=== PATIENT | male | born 1950 | race Caucasian/White ===

== ENCOUNTER 2020-08-06 09:08 | Emergency (ER) | payer MEDICARE, BC, SELFPAY ==
[2020-08-06] VITALS (19 sets, daily range): BP systolic 118–156; BP diastolic 71–104; PULSE 48–69; RESP 10–27; TEMP 36.8; O2SAT 96–100
--- NOTE | 2020-08-06 09:00 | RT.EKG_ITS ---
APPROVED REPORT Exam: Resting ECG Reason for Exam: syncope Patient Location: E HR:74 bpm ECG Measurements Heart Rate 74 AXIS IN 144 P 77 QRSd 79 QRS 77 QT 361 T 68 QTc 402 Conclusion Sinus rhythm...normal P axis, V-rate 60- 99 no WPW, no HOCM, QTc 402, no brugada, no acute ischemic changes. non-diagnostic EKG. I have reviewed and interpreted ECG and agree with software generated interpretation.
--- NOTE | 2020-08-06 09:17 | W.ED.GENAD ---
Discharge Plan Disposition Patient Disposition: HOME Condition: Stable Discharge Details Clinical Impression: Syncope Primary Care Provider: Vivi Santiago ED Provider: Chasidy Mora Home Meds and New Rx's Prescriptions: Continued ibuprofen 200 MG capsule 200 - 600 mg PO HS RF: 0 levothyroxine [Synthroid] 125 MCG tablet 1 tab PO DAILY RF: 0 Discharge Instructions Instructions: Syncope (ED) Additional Instructions: Follow up with primary care provider in 3-5 days. Return to ED sooner if any worsening or concerns. Increase oral fluids. Change positions slowly. Please return to the ED for any recurrent syncopal episodes, chest pain, headache or any concerns. Referrals: Vivi Santiago MD [Primary Care Provider] - Discharge Data Discharge Date/Time-TO BE ENTERED AT DEPARTURE: 08/06/20 10:37 Medical Decision Making 70-year-old male presents to the ER with chief complaint of syncopal episode just prior to arrival. Patient was upstairs with his who is currently a patient when they were showing him how to do a dressing change when he fainted. Patient denies any recollection of the event. He did eat breakfast this morning. He denies any headache he is alert and oriented x4 upon arrival no chest pain no shortness of breath denies any pain. He does have a past medical history of anxiety, hypothyroidism, right shoulder surgery. Initial BGL POC 127. EKG obtained, labs ordered including CBC, CMP, magnesium and serial troponins. At this time I do not believe CT head is indicated patient did not fall to the ground or hit head he is alert and oriented x3 denies any headache or blurry vision. Patient did eat breakfast this morning he denies any headache no chest pain. EKG was reviewed by Dr. Lois Galarza MD ER attending, please see her official read. Labs are largely WNL, however BUN/creatinine are elevated BUN is 41 creatinine 2.0 GFR 33. Discussed renal function with verbalized understanding. Orthostatic vital signs are also within normal limits. At this time plan will be to discharge patient. Discussed home care and strict return instructions, verbalized understanding. Differential diagnosis includes but not limited to vasovagal, anxiety, CAD, hypotension. HPI General Mode of arrival: wheelchair. Date/Time Provider Initiated Documentation: 08/06/20 09:09. Limitations to Documentation: no limitations. Information obtained by: patient. HPI Narrative: 70-year-old male presents to the ER with chief complaint of syncopal episode just prior to arrival. Patient was upstairs with his who is currently a patient when they were showing him how to do a dressing change when he fainted. Patient denies any recollection of the event. He did eat breakfast this morning. He denies any headache he is alert and oriented x4 upon arrival no chest pain no shortness of breath denies any pain. He does have a past medical history of anxiety, hypothyroidism, right shoulder surgery. Initial BGL POC 127. Related Data Home Medications Medication Instructions Recorded Confirmed levothyroxine [Synthroid] 1 tab PO DAILY 07/07/12 08/06/20 ibuprofen 200 - 600 mg PO HS 11/18/13 08/06/20 Allergies Allergy/AdvReac Type Severity Reaction Status Date / Time codeine [Codeine] AdvReac Severe Psychosis Unverified 08/06/20 09:21 acetaminophen [From Tylenol] AdvReac Intermediate Unverified 08/06/20 09:21 aspirin AdvReac Intermediate Unverified 08/06/20 09:21 oxycodone AdvReac Intermediate Nausea Unverified 08/06/20 09:21 Review of Systems Narrative: Constitutional: Negative for weight loss, alert and oriented, well groomed, normal body habitus, appears comfortable. HEENT: Denies trauma, headaches, blurry vision, nasal discharge, sore throat, trouble swallowing. Chest: Denies chest pain, palpitations, irregular rhythm, hypertension. Respiratory: Denies Shortness of breath, cough, hemoptysis. GI: Denies abdominal pain, nausea, vomiting, diarrhea, constipation. : Denies dysuria, hematuria, flank pain, rectal bleeding. Neuro: Denies blurry vision, weakness, headache or facial numbness. Positive syncopal episode prior to arrival. Hematologic: Denies easy bruising, intolerance to heat or cold, hair loss. [facility] Social History Smoking/Tobacco Use Status: Current every day Smoking risk assessment performed?: Yes Alcohol Intake: never Drug use: Never Do you feel safe at home: Yes Do you feel safe in your relationship?: Yes Exam Narrative Exam Narrative: Constitutional: Alert and oriented x3. Appears stated age. Normal body habitus. Head: Normocephalic, no trauma. Eyes: Pupils PERRLA, Red reflex noted, EOM's intact. Eyelids symmetrical without lesions, discharge, or swelling. ENT: Bilateral TM's WNL, External ear normal to inspection, no mastoid TTP, swelling, or erythema, Nasal turbinates WNL, no nasal discharge. Normal dentition, Posterior pharynx WNL, no exudate. Chest: RRR, Normal S1, S2, distal pulses intact. Resp: Lungs clear to auscultation bilaterally, no wheezes, rales, or rhonchi. Musculoskeletal: Normal gait, 5/5 strength to all four extremities. Skin: No suspicious rashes or lesions. Capillary refill less than 2 sec. Neurologic: Cranial nerves II-XII intact. Alert and oriented x 3. DTR's intact. Hematologic/Lymphatic: No ecchymosis, no lymphadenopathy.
[2020-08-06 09:33] LABS: Abs Immature Grans 0.02 10^3/uL (0.0-0.06); Absolute Basophil Count 0.06 10^3/uL (0.0-0.2); Absolute Eosinophil Count 0.34 10^3/uL (0.0-0.7); Absolute Monocyte Count 0.65 10^3/uL (0.1-0.8); Absolute Neutrophil Count 4.34 10^3/uL (1.2-6.7); Basophils % 0.9; HCT 47.9 % (40.0-50.0); HGB 15.6 g/dL (13.5-17.5); Immature Grans % 0.3; Lymphocytes % 20.6; MCH 29.8 pg (27.0-33.0); MCHC 32.6 % (32.0-36.0); MCV 91.4 fL (80-95); MPV 9.4 fL (8.0-11.0); Monocytes % 9.5; Neutrophils % 63.7; Nucleated RBC 0 %; Platelet Count 204 10^3/uL (130-400); RBC 5.24 10^6/uL (4.36-5.78); RDW 14.5 % (11.8-14.1); RDW-SD 48.5 fL; WBC 6.81 10^3/uL (4.4-10.8)
[2020-08-06 09:46] LABS: ALT 13 U/L (16-63); AST 15 U/L (15-37); Albumin 3.4 g/dL (3.4-5.0); Alkaline Phosphatase 80 U/L (46-116); Anion Gap 10.1 mmol/L (3-11); BUN 41 mg/dL (7-18); Bilirubin, Total 0.4 mg/dL (0.2-1.0); CO2 24.9 mmol/L (21.0-32.0); Calcium 9.1 mg/dL (8.5-10.1); Chloride 104 mmol/L (98-107); Estimated GFR 33.01 (mL/min/1.73m2); Glucose 127 mg/dL (74-106); Magnesium 1.9 mg/dL (1.8-2.4); Potassium 4.5 mmol/L (3.5-5.1); Sodium 139 mmol/L (136-145); Total Protein 9.1 g/dL (6.4-8.2)
[2020-08-06 09:48] LABS: Troponin I < 0.05 ng/mL (<0.06)
== END 2020-08-06 10:37 | disposition home or self-care (01) ==
PROVIDERS: Emergency Provider Registered Nurse Emergency
DX: R55 Syncope and collapse (principal)
CPT/HCPCS: 36416; 80053; 82962; 93005; 99283; 83735; 84484; 85025; 93010

== ENCOUNTER 2021-04-15 14:38 | Outpatient (REF) | payer MEDICARE, BC, SELFPAY ==
[2021-04-15 21:06] LABS: Anion Gap 7.2 mmol/L (3-11); BUN 28 mg/dL (7-18); CO2 25.8 mmol/L (21.0-32.0); CREATININE 1.7 mg/dL (0.70-1.30); Calcium 8.4 mg/dL (8.5-10.1); Calculated LDL 72 mg/dL (<100); Chloride 107 mmol/L (98-107); Cholesterol 132 mg/dL (<200); Estimated GFR 39.82 (mL/min/1.73m2); Glucose 131 mg/dL (74-106); HDL Cholesterol 33 mg/dL (40-60); Potassium 4.1 mmol/L (3.5-5.1); Sodium 140 mmol/L (136-145); TSH (W/Ref FT4) 2.07 uIU/mL (0.36-3.74); Triglyceride 137 mg/dL (<150)
== END 2021-04-15 14:39 | disposition home or self-care (01) ==
LOC: NCHCN 14:38
PROVIDERS: Visit Provider Nurse Practitioner Family
DX: E03.9 Hypothyroidism, unspecified (principal); F43.20 Adjustment disorder, unspecified; M79.89 Other specified soft tissue disorders; Z13.220 Encounter for screening for lipoid disorders
CPT/HCPCS: 80048; 80061; 84443

== ENCOUNTER 2021-06-20 10:58 | Emergency (ER) | payer MEDICARE, BC, SELFPAY ==
[2021-06-20] VITALS (27 sets, daily range): BP systolic 128–167; BP diastolic 61–90; PULSE 49–74; RESP 12–21; TEMP 36; O2SAT 92–99
--- NOTE | 2021-06-20 11:15 | RT.EKG_ITS ---
APPROVED REPORT Exam: Resting ECG Reason for Exam: shortness of breath Patient Location: E HR:52 bpm ECG Measurements Heart Rate 52 AXIS CO 152 P 77 QRSd 81 QRS 65 QT 399 T 60 QTc 372 Conclusion Sinus bradycardia...rate< 60
--- NOTE | 2021-06-20 11:32 | W.ED.GENAD ---
Discharge Plan Disposition Patient Disposition: HOME Condition: Stable Discharge Details Clinical Impression: Nocturnal dyspnea Primary Care Provider: Vivi Santiago ED Provider: Lilliam Kathleen Home Meds and New Rx's Prescriptions: Continued ibuprofen 200 MG capsule 200 - 600 mg PO HS 0RF Label Comments: PT STATES HE TAKES 600MG QHS.HE levothyroxine [Synthroid] 125 MCG tablet 1 tab PO DAILY 0RF Discharge Instructions Instructions: Dyspnea (ED) Additional Instructions: Please follow-up with primary care physician in 1 to 2 days for reassessment You will likely need a sleep study, call your doctor to organize this You also have some nodules in your lungs that will need repeat CT scan in approximately 12 months, please talk to your doctor about this You may want to sleep in a recliner for comfort Please return earlier should you have new or worsening complaints Referrals: Vivi Santiago MD [Primary Care Provider] - Discharge Data Discharge Date/Time-TO BE ENTERED AT DEPARTURE: 06/20/21 15:09 Medical Decision Making Patient with CT scan with nodules, no additional findings will follow up with PCP for repeat CT in 12 months The patient has paroxysmal nocturnal dyspnea, no obvious evidence of CHF I think patient will need sleep study Troponin negative with symptoms for over a month and no exertional component or chest pain No hypoxia, oxygenation 98% on room air Patient will be discharged home in stable condition with stable vitals Return precautions discussed with patient understanding encouraged to call pcp for close outpatient follow-up this week Medical Records Medical records reviewed: Yes I reviewed the patient's medical records. Lab Data Lab results reviewed: Yes I reviewed the patient's lab results. HPI General Date/Time Provider Initiated Documentation: 06/20/21 11:20. Limitations to Documentation: no limitations. HPI Narrative: This 71-year-old gentleman with history of hypothyroidism, anxiety, and snoring presents with report of shortness of breath whenever he lays flat. He states that this is been occurring for the past month. He denies any associated chest discomfort. He denies exertional dyspnea. He denies any fever or chills. He denies any cough or hemoptysis. He denies any calf pain or swelling. He denies any new stressors of lungs. He denies any prior history of [place]. He denies any associated diaphoresis or nausea. Denies history of pulmonary embolism. Specifically symptoms occur when he lays flat. Last evening he was laying flat and he awoke with inability to catch his breath. Related Data Home Medications Medication Instructions Recorded Confirmed levothyroxine 125 mcg tablet 1 tab PO DAILY 07/07/12 06/20/21 (Synthroid) ibuprofen 200 mg capsule 200 - 600 mg PO HS 11/18/13 06/20/21 Allergies Allergy/AdvReac Type Severity Reaction Status Date / Time codeine [Codeine] AdvReac Severe Psychosis Unverified 06/20/21 11:12 acetaminophen [From Tylenol] AdvReac Intermediate Unverified 06/20/21 11:12 aspirin AdvReac Intermediate Unverified 06/20/21 11:12 oxycodone AdvReac Intermediate Nausea Unverified 06/20/21 11:12 General Stated Complaint: GenMedical DARCY: 3 Review of Systems All systems reviewed & are unremarkable except as noted in HPI and below PFSH All Active Problems (Updated 06/20/21 @ 14:53 by ETHAN Garcia) Osteoarthritis of right shoulder (Acute) Status post right shoulder hemiarthroplasty (Acute) Anxiety (Chronic) Hypothyroidism (Chronic) H/O surgical procedure (Chronic) A. VASECTOMY B. DENTAL EXTRACTIONS C. RIGHT SHOULDER HEMIARTHROPLASTY WITH HUMERAL CAP PROSTHESIS 12/13/2013 Panic attack (Chronic) Snoring (Chronic) Syncope (Chronic) Nocturnal dyspnea (Acute) Social History Smoking/Tobacco Use Status: Current every day Tobacco Type: cigarettes Smoking risk assessment performed?: Yes Alcohol Intake: never Drug use: Never Do you feel safe at home: Yes Do you feel safe in your relationship?: Yes Exam Const General: cooperative, comfortable and no acute distress [facility] Head: normal to inspection Eyes Sclera: sclerae normal Neck Thyroid: thyroid normal Chest Chest: normal inspection of the chest Resp Effort & Inspection: normal respiratory effort Auscultation: clear to auscultation bilaterally Cardio Jugular venous pressure: no JVD Rate: regular rate Rhythm: regular rhythm Heart Sounds: no murmurs Skin General skin exam: no rashes or lesions noted Neuro General: patient alert and patient oriented x3 Extrem General: normal to inspection and no pedal edema Course Vital Signs Vital signs: Vital Signs Temperature 36 C L 06/20/21 11:09 Pulse 65 06/20/21 11:09 Respiratory Rate 16 06/20/21 11:09 Blood Pressure 139/83 06/20/21 11:09 Pulse Oximetry 98 06/20/21 11:09 Temperature 36 C L 06/20/21 11:09 Temperature Source Skin 06/20/21 11:09 Pulse 65 06/20/21 11:09 Respiratory Rate 16 06/20/21 11:09 Respiratory Effort 06/20/21 11:09 Blood Pressure 139/83 06/20/21 11:09 Blood Pressure Position Sitting 06/20/21 11:09 Pulse Oximetry 98 06/20/21 11:09 Oxygen Delivery Method Room Air 06/20/21 11:09 Oxygen Flow Rate 0 06/20/21 11:09 Pain Level 0 06/20/21 11:09
[2021-06-20 12:26] LABS: Abs Immature Grans 0.01 10^3/uL (0.0-0.06); Absolute Basophil Count 0.05 10^3/uL (0.0-0.2); Absolute Eosinophil Count 0.24 10^3/uL (0.0-0.7); Absolute Lymphocyte Count 1.25 10^3/uL (1.2-3.4); Absolute Monocyte Count 0.65 10^3/uL (0.1-0.8); Absolute Neutrophil Count 3.87 10^3/uL (1.2-6.7); Basophils % 0.8; HCT 46.4 % (40.0-50.0); HGB 15.1 g/dL (13.5-17.5); Immature Grans % 0.2; Lymphocytes % 20.6; MCH 29.7 pg (27.0-33.0); MCHC 32.5 % (32.0-36.0); MCV 91.3 fL (80-95); MPV 9.6 fL (8.0-11.0); Monocytes % 10.7; Neutrophils % 63.7; Nucleated RBC 0 %; Platelet Count 186 10^3/uL (130-400); RBC 5.08 10^6/uL (4.36-5.78); RDW 14.3 % (11.8-14.1); RDW-SD 47.9 fL; WBC 6.07 10^3/uL (4.4-10.8)
[2021-06-20 12:34] LABS: ALT 14 U/L (16-63); AST 14 U/L (15-37); Albumin 3.7 g/dL (3.4-5.0); Alkaline Phosphatase 94 U/L (46-116); Anion Gap 6.1 mmol/L (3-11); BUN 29 mg/dL (7-18); Bilirubin, Total 0.5 mg/dL (0.2-1.0); CO2 25.9 mmol/L (21.0-32.0); CREATININE 1.8 mg/dL (0.70-1.30); Calcium 8.9 mg/dL (8.5-10.1); Chloride 105 mmol/L (98-107); Estimated GFR 37.17 (mL/min/1.73m2); Glucose 101 mg/dL (74-106); Potassium 4.7 mmol/L (3.5-5.1); Sodium 137 mmol/L (136-145); Total Protein 8.8 g/dL (6.4-8.2)
[2021-06-20 12:42] LABS: NT-proBNP 101 pg/mL (<300); Troponin I < 50 ng/L (<or=60)
[2021-06-20 12:43] LABS: TSH (W/Ref FT4) 3.63 uIU/mL (0.36-3.74)
--- NOTE | 2021-06-20 12:50 | DI.RAD_ITS ---
Exam(s) XR PORTABLE CHEST AP EXAM: XR PORTABLE CHEST AP CLINICAL HISTORY: chest pain TECHNIQUE: 2D digital imaging was performed of the chest. Two images were obtained. AP views were obtained. COMPARISON: CR CHEST 2 VIEWS PA,LAT from 07/07/2012 FINDINGS: MEDIASTINUM: Normal. HEART: Normal. PULMONARY VASCULATURE: Normal. LUNGS: Clear. PLEURAL SPACE: No pleural effusion or pneumothorax. BONE:Within normal limits for the patient's age. Patient has a partial right shoulder replacement. There is sclerosis and cystic change in the subchondral bone of the left humeral head which may be de generative or avascular necrosis in nature. Degenerative changes are seen at the left AC joint. OTHER FINDINGS:Normal. IMPRESSION: No acute pulmonary findings. DATA REPOSITORY: RADIATION DOSE DELIVERED:
--- NOTE | 2021-06-20 13:00 | DI.CT_ITS ---
Exam(s) CT CHEST PE CTA EXAM: CT CHEST PE CTA CLINICAL HISTORY: shortness of breath. TECHNIQUE: Imaging Protocol: Axial CT angiography was performed with multi-slice acquisition and mu lti-planar and/or 3D reconstructions. CONTRAST MATERIAL: Intravenous: Omnipaque 350 Contrast volume:69 mL COMPARISON: CR XR PORTABLE CHEST AP from 06/20/2021 FINDINGS: Tracheobronchial tree: Patent where visualized. Pulmonary parenchyma: No consolidation or dominant measurable mass. Moderate centrilobular emphysemat ous changes are present. There is a calcified granuloma in the right lower lobe. There is a 6 mm no ncalcified pulmonary nodule in the right lower lobe. There is a 5 mm noncalcified pulmonary nodule in the right lower lobe. No other pulmonary nodules are identified. Pulmonary Arteries: No evidence of filling defect to suggest pulmonary emboli. Mediastinum and Gaby: No dominant adenopathy or fluid collection. The esophagus is unremarkable. Visualized thyroid gland: Unremarkable. Pleura: No effusion or pneumothorax. Heart: The heart is not dilated. No coronary artery calcifications are seen. No pericardial effusion. Aorta: Thoracic aorta non-dilated. No evidence of dissection. Atherosclerosis. Upper abdomen: There is a 1.4 cm cyst in the left lobe of the liver. Soft tissues: Unremarkable. Bones: Within normal limits for the patient's age. IMPRESSION: 1. No evidence of pulmonary embolism, thoracic aortic dissection or aneurysm. 2. Two right lower lobe pulmonary nodules. In low risk patients, a 12 month follow-up CT scan may be considered. In high risk patients (history of smoking or other risk factors), a follow-up CT scan in 6-12 months is recommended and again at 18-24 months. ([facility], 2017). 3. Results of this exam have been verbally communicated with provider. RADIATION DOSE DELIVERED: 252.17mGy.cm Total DLP DATA REPOSITORY: All CT scans at this facility are submitted to the National Radiology Data Registry (NRDR) Dose Index Registry (DIR) with the [employer] (ACR). RADIATION OPTIMIZATION: All CT scans at this facility use at least one of these dose optimization te chniques: automated exposure control; mA and/or kV adjustment per patient size (includes targeted exa ms where dose is matched to clinical indication); or iterative reconstruction.
[2021-06-20 13:02] LABS: D-Dimer 1671 ng/mlFEU (<500)
[2021-06-20] MEDS: Normal Saline 500 ML IV (13:25)
[2021-06-20] MEDS: Omnipaque 350 MG/ML 100 ML BTL 69 ML IV (13:51)
== END 2021-06-20 15:09 | disposition home or self-care (01) ==
PROVIDERS: Emergency Provider Physician Assistant
DX: R06.09 Other forms of dyspnea (principal); R06.02 Shortness of breath; R07.9 Chest pain, unspecified; E03.9 Hypothyroidism, unspecified
CPT/HCPCS: 36415; 71275; 80053; 93005; 96360; 99285; 71045; 83880; 84443; 84484; 85025; 85379; 93010; 99284; J3490

== ENCOUNTER → 2021-09-17 07:41 | Outpatient (BNVA) | payer MEDICARE, BC, SELFPAY | PROVIDERS: Visit Provider Surgery | DX: S20.462A Insect bite (nonvenomous) of left back wall of thorax, initial encounter (principal); X58.XXXA Exposure to other specified factors, initial encounter; L72.3 Sebaceous cyst; D17.9 Benign lipomatous neoplasm, unspecified; L70.0 Acne vulgaris | CPT/HCPCS: 99202 ==

== ENCOUNTER → 2021-10-01 09:42 | Outpatient (BNVA) | payer MEDICARE, BC, SELFPAY | PROVIDERS: Visit Provider Surgery | DX: L72.3 Sebaceous cyst (principal) | CPT/HCPCS: 11406; 99213 ==

== ENCOUNTER → 2021-10-11 09:40 | Outpatient (BNVA) | payer MEDICARE, BC, SELFPAY | PROVIDERS: PCP Family Medicine; Referring Provider Family Medicine; Visit Provider Physical Therapy Assistant | DX: L72.3 Sebaceous cyst (principal); Z51.89 Encounter for other specified aftercare | CPT/HCPCS: 99213 ==

== ENCOUNTER → 2021-10-18 10:45 | Outpatient (BNVA) | payer MEDICARE, BC, SELFPAY | PROVIDERS: PCP Family Medicine; Referring Provider Family Medicine; Visit Provider Physical Therapy Assistant | DX: Z51.89 Encounter for other specified aftercare (principal); L72.3 Sebaceous cyst | CPT/HCPCS: 99213 ==

== ENCOUNTER 2022-02-20 03:56 | Emergency (ER) | payer MEDICARE, BC, SELFPAY ==
[2022-02-20] VITALS (19 sets, daily range): BP systolic 133–154; BP diastolic 67–100; PULSE 59–69; RESP 18; TEMP 36.5; O2SAT 96–99
--- NOTE | 2022-02-20 04:00 | ED.GENADUL_ITS ---
Discharge Plan Disposition Patient Disposition: Home Condition: Stable Discharge Details Clinical Impression: Right sided abdominal pain, Right flank pain Primary Care Provider: Yesy Galvan ED Provider: Deeptih Medrano Home Meds and New Rx's Prescriptions: Continued ibuprofen 200 MG capsule 200 - 600 mg PO HS Label Comments: PT STATES HE TAKES 600MG QHS.HE fluticasone furoate-vilanterol [Breo Ellipta] 100-25 mcg/dose blister with device 1 inh inhalation DAILY levothyroxine [Synthroid] 125 MCG tablet 1 tab PO DAILY Discharge Instructions Instructions: Abdominal Pain (ED), Back Pain (ED) Additional Instructions: Your blood tests and imaging today were reassuring and show no evidence of acute concerning or significant findings. Your urine sample today did note a trace amount of blood which sometimes can be seen in a kidney stone but there was no evidence of kidney stone on your CT scan today. You can follow-up with urology for further evaluation of the blood in your urine. Alternate ice and heat to the affected area(s) several times daily for 20 minutes at a time. Alternate tylenol and motrin as needed and directed for pain. Follow-up with your primary care doctor in 1 week. Return to the emergency department with any worsening or new concerning symptoms. Referrals: Ki Cook MD [ [facility] STAFF PHYSICIAN] - Discharge Data Discharge Date/Time-TO BE ENTERED AT DEPARTURE: 02/20/22 06:50 Discharge Physician: Deepthi Medrano Medical Decision Making 71-year-old male with a history of anxiety and hypothyroidism presents with 3 separate episodes of pain occurring over the last 3 mornings, now resolved. He states the pain has occurred in his right lower abdomen and right flank. He denies any symptoms including pain at present. Upon my evaluation patient is stating he thinks he should go home as he has no symptoms. He states he was afraid to go to sleep tonight due to the pain occurring tomorrow morning. Patient appears mildly anxious but otherwise nontoxic. He denies tearing or ripping sensation and is hemodynamically stable history and presentation does not appear consistent with ACS, dissection, PE, AAA. Considered kidney stone, UTI, bowel gas, appendicitis, cholelithiasis, cholecystitis, muscle strain. Patient is agreeable with plan for IV, screening labs, urinalysis and CT renal colic. A dose of IV Toradol was ordered but patient declined as he stated he was pain-free. Labs and imaging reviewed. Normal white blood cell count. Creatinine 1.9 and GFR 36 but no previous labs to compare. Lipase within normal limits. Urinalysis notes trace blood. CT renal colic negative for acute findings. Patient reassessed and he is sleeping on exam But able to awaken and he states he has remained symptom including pain-free. Patient would like to go home. Discussed with patient that his symptoms could be secondary to a recently passed stone secondary to his hematuria, gas, food r elated or abdominal muscle strain, etc. Discussed with patient that he should call his primary care doctor tomorrow to schedule follow-up appointment for reevaluation within the next week. He was given urology follow-up information for his hematuria. Usual and customary return precautions given prior to discharge. Medical Records Medical records reviewed: Yes I reviewed the patient's medical records. Imaging Data Radiologic Study: Radiologist's impression: CT Abdomen And Pelvis Without Contrast Exam date and time: 02/20/2022 4:45 AM Age: 71 years old Clinical indication: Abdominal pain; Flank; Right; Additional info: R side abd/flank pain, R/O kidney stone TECHNIQUE: Imaging protocol: Computed tomography of the abdomen and pelvis without contrast. Radiation optimization: All CT scans at this facility use at least one of these dose optimization techniques: automated exposure control; mA and/or kV adjustment per patient size (includes targeted exams where dose is matched to clinical indication); or iterative reconstruction. COMPARISON: CT CHEST PE CTA 06/20/2021 1:50 PM FINDINGS: Liver: Multiple simple hepatic cysts. Gallbladder and bile ducts: Normal. No calcified stones. No ductal dilation. Pancreas: Normal. No ductal dilation. Spleen: Normal. No splenomegaly. Adrenal glands: Bilateral adrenal gland thickening. Kidneys and ureters: Bilateral simple renal cysts. Stomach and bowel: Unremarkable. No obstruction. No mucosal thickening. Appendix: No evidence of appendicitis. Intraperitoneal space: Unremarkable. No free air. No significant fluid collection. Vasculature: Abdominal aortic atherosclerotic plaque. Infrarenal abdominal aortic ectasia. Lymph nodes: Unremarkable. No enlarged lymph nodes. Urinary bladder: Unremarkable as visualized. Reproductive: Unremarkable as visualized. Bones/joints: Unremarkable. No acute fracture. Soft tissues: Unremarkable. IMPRESSION: 1. No acute findings. 2. Additional findings as above. Lab Data Lab results reviewed: Yes I reviewed the patient's lab results. Labs: Laboratory Tests Range/Units 02/20/22 02/20/22 02/20/22 04:00 04:45 05:25 WBC (4.4-10.8) 10^3/uL 6.69 RBC (4.36-5.78) 10^6/uL 4.97 Hgb (13.5-17.5) g/dL 15.5 Hct (40.0-50.0) % 46.8 MCV (80-95) fL 94 MCH (27.0-33.0) pg 31.2 MCHC (32.0-36.0) % 33.1 RDW (11.8-14.1) % 13.9 Plt Count (130-400) 10^3/uL 154 MPV (8.0-11.0) fL 10.0 Immature Gran % 0.3 Neutrophils % 61.7 Lymphocytes % 20.5 Monocytes % 11.7 Eosinophils % 4.9 Basophils % 0.9 Nucleated RBC % (0.0-0.3) % 0.0 Absolute Neutrophils (1.2-6.7) 10^3/uL 4.13 Absolute Lymphocytes (1.2-3.4) 10^3/uL 1.37 Absolute Monocytes (0.1-0.8) 10^3/uL 0.78 Absolute Eosinophils (0.0-0.7) 10^3/uL 0.33 Absolute Basophils (0.0-0.2) 10^3/uL 0.06 Sodium (136-145) mmol/L 138 Potassium (3.5-5.1) mmol/L 4.1 Chloride (98-107) mmol/L 105 Carbon Dioxide (21.0-32.0) mmol/L 23.1 Anion Gap (3-11) mmol/L 9.9 BUN (7-18) mg/dL 31 H Creatinine (0.70-1.30) mg/dL 1.9 H Est GFR (CKD-EPI 2020) (mL/min/1.73m2) 36.79 Glucose (74-106) mg/dL 96 Calcium (8.5-10.1) mg/dL 8.4 L Total Bilirubin (0.2-1.0) mg/dL 0.4 AST (15-37) U/L 17 ALT (16-63) U/L 17 Alkaline Phosphatase (46-116) U/L 82 Total Protein (6.4-8.2) g/dL 7.7 Albumin (3.4-5.0) g/dL 3.3 L Lipase (73-393) U/L 107 Urine Color (Yellow) Yellow Urine Clarity (Clear) Clear Urine pH (5-8) 6.0 Ur Specific [place] (1.005-1.025) >= 1.030 H Urine Protein (Negative) mg/dL Negative Urine Ketones (Negative) mg/dL Negative Urine Blood (Negative) Trace-lysed H Urine Nitrite (Negative) Negative Urine Bilirubin (Negative) Negative Urine Urobilinogen (Up TO 0.2) EU/dL 0.2 Ur Leukocyte Esterase (Negative) Negative Urine RBC (0-2) HPF 3-5 H Urine WBC (0-5) HPF 0-2 Ur Epithelial Cells (Negative) HPF Rare Urine Crystals (Negative) HPF Negative Urine Bacteria (Negative) HPF Few Urine Casts (Negative) LPF 0-2 Hyaline Urine Mucus (Negative) Trace Ur Culture Indicated? No Urine Glucose (Negative) mg/dL Negative Sign Out No HPI General Mode of arrival: ambulatory . Date/Time Provider Initiated Documentation: 02/20/22 03:59 . Limitations to Documentation: no limitations . Information obtained by: patient . HPI Narrative: Patient is a 71-year-old male with a history of anxiety and hypothyroidism who presents for 3 episodes over 3 days of right side pain. Patient states he developed a right side pain that lasted a few minutes 3 mornings ago and then resolved. He states yesterday morning around 4 AM he developed similar pain oc curring in his right lower quadrant which lasted a few minutes and then resolved. Patient states he took Aleve yesterday for the pain without improvement. Patient states today around 2 AM he awoke with right flank pain similar in quality to the pain for the past 2 mornings and states it was severe and he called EMS because he was scared to go back to sleep due to the pain. He has not taken any medication for pain today for this. He denies any symptoms at present states he is pain-free. He denies fever, chest pain, difficulty breathing, urinary symptoms, leg pain leg pain or weakness, saddle anesthesia or bowel or bladder incontinence. Related Data Home Medications Medication Instructions Recorded Confirmed levothyroxine 125 mcg tablet 1 tab PO DAILY 07/07/12 02/20/22 (Synthroid) ibuprofen 200 mg capsule 200 - 600 mg PO HS 11/18/13 02/20/22 fluticasone furoate 100 1 inh inhalation DAILY 09/09/21 02/20/22 mcg-vilanterol 25 mcg/dose inhalation powder (Breo Ellipta) Allergies Allergy/AdvReac Type Severity Reaction Status Date / Time codeine [Codeine] AdvReac Severe Psychosis Unverified 02/20/22 04:38 acetaminophen [From Tylenol] AdvReac Intermediate Unverified 02/20/22 04:38 aspirin AdvReac Intermediate Unverified 02/20/22 04:38 oxycodone AdvReac Intermediate Nausea Unverified 02/20/22 04:38 General Stated Complaint: Abd Prob DARCY: 3 Review of Systems All systems reviewed & are unremarkable except as noted in HPI and below Constitutional Constitutional: Reports as per HPI, Denies chills and Denies fever(s) Eyes Eyes: Denies blurry vision ENT Ears, Nose, Mouth, and Throat: Denies dizziness, Denies sore throat and Denies throat swelling Cardiovascular Cardiovascular: Denies chest pain and Denies dyspnea Respiratory Respiratory: Denies cough and Denies dyspnea Gastrointestinal Gastrointestinal: Denies abdominal pain, Denies diarrhea and Denies vomiting Genitourinary Genitourinary: Denies hematuria, Denies dysuria and Reports flank pain Musculoskeletal Musculoskeletal: Denies back pain and Denies numbness Integumentary/Breasts Skin/Breast: Denies lesions and Denies rash Neurologic Neurologic: Denies dizziness, Denies localized weakness and Denies numbness Allergic/Immunologic Allergic/Immunologic: Denies throat swelling PFSH All Active Problems (Updated 02/20/22 @ 06:33 by Deepthi Medrano DO) Right sided abdominal pain (Acute) Right flank pain (Acute) Nicotine addiction (Acute) Renal insufficiency (Chronic) COPD (chronic obstructive pulmonary disease) (Chronic) Sebaceous cyst (Acute) Medical History Anxiety Elevated blood sugar Grief reaction Hypothyroidism Osteoarthritis of right shoulder Panic attack Snoring Soft tissue mass Syncope Surgical History H/O surgical procedure A. VASECTOMY B. DENTAL EXTRACTIONS C. RIGHT SHOULDER HEMIARTHROPLASTY WITH HUMERAL CAP PROSTHESIS 12/13/2013 Status post right shoulder hemiarthroplasty Social History Smoking/Tobacco Use Status: Current every day Tobacco Type: cigarettes Smoking risk assessment performed?: Yes Alcohol Intake: never Drug use: Never Substance use type: does not use Do you feel safe at home: Yes Do you feel safe in your relationship?: Yes Exam Const General: cooperative, healthy appearing, comfortable and no acute distress Orientation: alert, awake and oriented x3 HENMT Head: normal to inspection Face and sinus: normal facial exam Eyes General: appearance normal, both eyes and all related structures Pupils: PERRL EOM: EOM intact bilaterally Neck Neck: normal visual inspection and No submandibular swelling Lymphatic: no lymphadenopathy noted Chest Chest: normal inspection of the chest and no tenderness Resp Effort & Inspection: normal respiratory effort and able to speak in complete sentences Auscultation: clear to auscultation bilaterally Cardio Rate: regular rate Rhythm: regular rhythm GI Inspection: normal to inspection Palpation: soft, not firm, not rigid and nontender Auscultation: hypoactive bowel sounds Male General Exam: Yes normal external exam Back/Spine/Pelvis Back: CVA tenderness (mild R sided) Thoracic/Lumbar Spine: thoracic and lumbar spine normal to inspection Pelvis: no pain with anterior-posterior compression Skin General skin exam: no rashes or lesions noted Neuro General: patient alert, patient awake and patient oriented x3 Cognition: normal cognition Speech: speech normal Motor: muscle tone normal throughout Sensory Exam: no sensory deficits noted Extrem General: normal to inspection, full ROM, capillary refill normal, no calf tenderness bilaterally and no edema Psych Appearance: grossly normal Mental Status: mental status grossly normal Speech and Movement: speech and movement normal Affect: normal affect Course Vital Signs Vital signs: Vital Signs Temperature 97.7 F 02/20/22 03:43 Pulse 66 02/20/22 03:43 Respiratory Rate 18 02/20/22 03:43 Blood Pressure 154/69 H 02/20/22 03:43 Pulse Oximetry 99 02/20/22 03:43 Temperature 97.7 F 02/20/22 03:43 Pulse 66 02/20/22 03:43 Respiratory Rate 18 02/20/22 03:43 Respiratory Effort 02/20/22 03:51 Blood Pressure 154/69 H 02/20/22 03:43 Pulse Oximetry 99 02/20/22 03:43 Oxygen Delivery Method Room Air 02/20/22 03:43 Oxygen Flow Rate 0 02/20/22 03:43 Pain Level 2 02/20/22 03:43
--- NOTE | 2022-02-20 04:15 | DI.CT_ITS ---
Exam(s) CT RENAL COLIC WO EXAM: CT RENAL COLIC WO INDICATION: R side abd/Flank pain, r/o kidney stone. COMPARISON: CT CT CHEST PE CTA from 06/20/2021 TECHNIQUE: CT examination was performed without contrast administration. FINDINGS: Images obtained through the lung bases are unremarkable. Visualized portions of the liver and splee n appear intact with an incidental apparent left hepatic lobe cyst. Visualized portions of the pancreas are unremarkable. Gallbladder and bile ducts are CT normal. Abdominal aorta is of normal diameter. No significant abdominal wall hernia. No significant abdominal or pelvic adenopathy. Adrenals appear normal bilaterally. The kidneys are normal in size and shape. There are probable small bilateral renal cysts period ther e is no evidence of a renal mass, hydronephrosis, or nephrolithiasis. No ureteral dilatation or calcification identified. Urinary bladder is unremarkable in appearance. IMPRESSION: Negative noncontrast abdominal and pelvic CT. No urinary tract calcification or obstruction. RADIATION DOSE DELIVERED: DLP Total DLP DATA REPOSITORY: All CT scans at this facility are submitted to the National Radiology Data Registry (NRDR) Dose Index Registry (DIR) with the [employer] (ACR). RADIATION OPTIMIZATION: All CT scans at this facility use at least one of these dose optimization te chniques: automated exposure control; mA and/or kV adjustment per patient size (includes targeted exa ms where dose is matched to clinical indication); or iterative reconstruction.
[2022-02-20 04:32] LABS: Abs Immature Grans 0.02 10^3/uL (0.0-0.06); Absolute Basophil Count 0.06 10^3/uL (0.0-0.2); Absolute Eosinophil Count 0.33 10^3/uL (0.0-0.7); Absolute Lymphocyte Count 1.37 10^3/uL (1.2-3.4); Absolute Monocyte Count 0.78 10^3/uL (0.1-0.8); Absolute Neutrophil Count 4.13 10^3/uL (1.2-6.7); Basophils % 0.9; Eosinophils % 4.9; HCT 46.8 % (40.0-50.0); HGB 15.5 g/dL (13.5-17.5); Immature Grans % 0.3; Lymphocytes % 20.5; MCH 31.2 pg (27.0-33.0); MCHC 33.1 % (32.0-36.0); MCV 94 fL (80-95); Monocytes % 11.7; Neutrophils % 61.7; Platelet Count 154 10^3/uL (130-400); RBC 4.97 10^6/uL (4.36-5.78); RDW 13.9 % (11.8-14.1); RDW-SD 48.3 fL; WBC 6.69 10^3/uL (4.4-10.8)
[2022-02-20 05:16] LABS: ALT 17 U/L (16-63); AST 17 U/L (15-37); Albumin 3.3 g/dL (3.4-5.0); Alkaline Phosphatase 82 U/L (46-116); Anion Gap 9.9 mmol/L (3-11); BUN 31 mg/dL (7-18); Bilirubin, Total 0.4 mg/dL (0.2-1.0); CO2 23.1 mmol/L (21.0-32.0); CREATININE 1.9 mg/dL (0.70-1.30); Calcium 8.4 mg/dL (8.5-10.1); Chloride 105 mmol/L (98-107); Estimated GFR 36.79 (mL/min/1.73m2); Glucose 96 mg/dL (74-106); Lipase 107 U/L (73-393); Potassium 4.1 mmol/L (3.5-5.1); Sodium 138 mmol/L (136-145); Total Protein 7.7 g/dL (6.4-8.2)
[2022-02-20 05:33] LABS: Bilirubin Negative (Negative); Blood Trace-lysed (Negative); Clarity Clear (Clear); Glucose Negative (Negative); Ketones Negative (Negative); Leukocyte Esterase Negative (Negative); Nitrite Negative (Negative); Specific Gravity >= 1.030 (1.005-1.025); Urobilinogen 0.2 EU/dL (Up TO 0.2)
[2022-02-20 05:42] LABS: Bacteria Few HPF (Negative); C & S Indicated? No; Casts 0-2 Hyaline LPF (Negative); Crystals Negative HPF (Negative); Epithelial Cells Rare HPF (Negative); Mucus Trace (Negative); WBC 0-2 HPF (0-5)
--- NOTE | 2022-02-20 06:18 | DI.VRAD_ITS ---
PROCEDURE INFORMATION: Exam: CT Abdomen And Pelvis Without Contrast Exam date and time: 02/20/2022 4:45 AM Age: 71 years old Clinical indication: Abdominal pain; Flank; Right; Additional info: R side abd/flank pain, R/O kidney stone TECHNIQUE: Imaging protocol: Computed tomography of the abdomen and pelvis without contrast. Radiation optimization: All CT scans at this facility use at least one of these dose optimization techniques: automated exposure control; mA and/or kV adjustment per patient size (includes targeted exams where dose is matched to clinical indication); or iterative reconstruction. COMPARISON: CT CHEST PE CTA 06/20/2021 1:50 PM FINDINGS: Liver: Multiple simple hepatic cysts. Gallbladder and bile ducts: Normal. No calcified stones. No ductal dilation. Pancreas: Normal. No ductal dilation. Spleen: Normal. No splenomegaly. Adrenal glands: Bilateral adrenal gland thickening. Kidneys and ureters: Bilateral simple renal cysts. Stomach and bowel: Unremarkable. No obstruction. No mucosal thickening. Appendix: No evidence of appendicitis. Intraperitoneal space: Unremarkable. No free air. No significant fluid collection. Vasculature: Abdominal aortic atherosclerotic plaque. Infrarenal abdominal aortic ectasia. Lymph nodes: Unremarkable. No enlarged lymph nodes. Urinary bladder: Unremarkable as visualized. Reproductive: Unremarkable as visualized. Bones/joints: Unremarkable. No acute fracture. Soft tissues: Unremarkable. IMPRESSION: 1. No acute findings. 2. Additional findings as above. Dictated and Authenticated by: Javier Calvillo MD. Ordering:ERASMO Lacey MD
== END 2022-02-20 06:50 | disposition home or self-care (01) ==
PROVIDERS: Emergency Provider Physician Assistant; PCP Family Medicine
DX: R10.31 Right lower quadrant pain (principal); E03.9 Hypothyroidism, unspecified; M19.011 Primary osteoarthritis, right shoulder; F17.210 Nicotine dependence, cigarettes, uncomplicated
CPT/HCPCS: 36415; 80053; 83690; 96361; 96374; 99284; 74176; 81003; 81015; 85025

== ENCOUNTER 2022-04-28 11:36 | Outpatient (REF) | payer MEDICARE, BC, SELFPAY ==
[2022-04-28 15:31] LABS: Abs Immature Grans 0.01 10^3/uL (0.0-0.06); Absolute Basophil Count 0.07 10^3/uL (0.0-0.2); Absolute Eosinophil Count 0.26 10^3/uL (0.0-0.7); Absolute Lymphocyte Count 1.18 10^3/uL (1.2-3.4); Absolute Monocyte Count 0.69 10^3/uL (0.1-0.8); Absolute Neutrophil Count 3.61 10^3/uL (1.2-6.7); Basophils % 1.2; Eosinophils % 4.5; HCT 49.7 % (40.0-50.0); HGB 16.3 g/dL (13.5-17.5); Immature Grans % 0.2; Lymphocytes % 20.3; MCHC 32.8 % (32.0-36.0); MCV 95 fL (80-95); MPV 10.2 fL (8.0-11.0); Monocytes % 11.9; Neutrophils % 61.9; Platelet Count 167 10^3/uL (130-400); RBC 5.26 10^6/uL (4.36-5.78); RDW 13.8 % (11.8-14.1); RDW-SD 48.3 fL; WBC 5.82 10^3/uL (4.4-10.8)
[2022-04-28 15:48] LABS: Hemoglobin A1C 5.3 % (<5.7)
[2022-04-28 16:03] LABS: TSH (W/Ref FT4) 1.16 uIU/mL (0.36-3.74)
== END 2022-04-28 11:37 | disposition home or self-care (01) ==
LOC: NCHCN 11:36
PROVIDERS: PCP Family Medicine; Visit Provider Family Medicine
DX: E03.9 Hypothyroidism, unspecified (principal); R73.9 Hyperglycemia, unspecified
CPT/HCPCS: 83036; 84443; 85025

== ENCOUNTER 2023-01-24 22:06 | Observation (INO) | payer MEDICARE, BC, SELFPAY ==
[2023-01-24 22:11] VITALS: BP 127/65; PULSE 75; RESP 16; TEMP 36.2; O2SAT 98
--- NOTE | 2023-01-24 22:15 | RT.EKG_ITS ---
APPROVED REPORT Exam: Resting ECG Reason for Exam: ABD PAIN Patient Location: E HR:66 bpm ECG Measurements Heart Rate 66 AXIS NE 157 P 60 QRSd 81 QRS 53 QT 370 T 65 QTc 388 Conclusion Sinus rhythm...V-rate 60- [address] segment or T wave abnormalities to suggest occlusive PR
--- NOTE | 2023-01-24 22:15 | DI.CT_ITS ---
Exam(s) CT ABDOMEN PELVIS W EXAM: CT ABDOMEN PELVIS W CLINICAL HISTORY: RUQ and LUQ abdominal pain, severe, crampy, TTP. TECHNIQUE: Imaging Protocol: Axial computed tomography images with coronal and sagittal reformatted images were created and reviewed CONTRAST MATERIAL: Intravenous: Omnipaque 350 Contrast volume:100 ml Oral: no COMPARISON: CT CT RENAL COLIC WO from 02/20/2022 FINDINGS: ABDOMEN and PELVIS: Lung Bases: Normal where visualized. Liver: Normal density. No measurable mass. Gallbladder and biliary tract: No radiodense calculus or dilation. Pancreas: Normal density. No abnormal calcifications or inflammatory process. No evidence of mass. Spleen: Normal. Kidneys: Normal size, contour and axis. No radiodense stones. No obstructive uropathy. No suspicious masses seen. Adrenal glands: No masses seen. Vasculature: Abdominal aorta non-dilated. Soft tissues: Unremarkable. Bladder: Nearly empty. Not well evaluated. No calculi.No focal mass. Bowel: Tiny to diverticulum of the descending duodenum. No obstruction. No bowel wall thickening. Appendix normal. Moderate to increased quantity of stool on the right. Peritoneal cavity: No ascites. No focal collection or mesenteric inflammatory response. Bones: Degenerative changes throughout. No compression fractures. Reproductive organs: Prostate mildly enlarged. Small amount of fat in the left inguinal canal. Lymph nodes: Unremarkable. IMPRESSION:: No acute abnormality in the abdomen or pelvis. RADIATION DOSE DELIVERED: Total DLP DATA REPOSITORY: All CT scans at this facility are submitted to the National Radiology Data Registry (NRDR) Dose Index Registry (DIR) with the [employer] (ACR). RADIATION OPTIMIZATION: All CT scans at this facility use at least one of these dose optimization te chniques: automated exposure control; mA and/or kV adjustment per patient size (includes targeted exa ms where dose is matched to clinical indication); or iterative reconstruction.
--- NOTE | 2023-01-24 22:31 | W.ED.GENAD ---
Discharge Plan Disposition Patient Disposition: Admit to [facility] Condition: Serious Discharge Details Clinical Impression: Renal insufficiency, Acute pancreatitis Primary Care Provider: Yesy Galvan ED Provider: Radha Almaguer Home Meds and New Rx's Prescriptions: No Action fluticasone furoate-vilanterol [Breo Ellipta] 100-25 mcg/dose blister with device 1 inh inhalation DAILY levothyroxine [Synthroid] 125 MCG tablet 1 tab PO DAILY lisinopril 20 mg tablet 20 mg PO DAILY Medical Decision Making 72yo F with hx of hypothyroid, HTN, COPD, CKD, presenting for severe abdominal pain. History from patient and [facility] record review. Patient has a history of opiate dependence and refuses opiate medications or tylenol (states tylenol makes him feel buzzed), does accept toradol. Symptoms started three days ago and have been worsening; constant upper abdominal pain with waves of more severe crampy pain radiating bilaterally. Vital signs reassuring on arrival, not septic, on exam he does have epigastric tenderness as well as provokable (though not reproducible) upper abdominal pain with palpation of his lower abdomen. No dee peritoneal signs. No hematuria to suggest nephroliathiasis. Pain does not radiate to back, not hypertensive here, lower suspicion for aortic dissection; would not get CTA. Age, severe pain, non-benign abdominal exam are concerning enough to warrant evaluation with contrast CT abd/pelvis regardless of known kidney disease as he is at risk for serious/surgical pathology. Labs reviewed as below, CBC reassuring, CMP with Cr 2.4 (somewhat elevated from baseline on record review; will give 1L IVFB to assist with clearing contrast) otherwise reassuring with no elevated LFTs. Lipase elevated greater than three times normal limit suggestive of acute pancreaitits. LDH normal. EKG NSR, no ischemic changes. CT abd/pelvis independently reviewed, no bowel obstruction or free fluid on my view, agree with radiology read below (normal gallbladder). Overall not concerning for cholangitis or choledocolithiasis. On reassessment he reports pain has somewhat improved. [place] score 1, reassuring. Awaiting urine. Discussed with hospitalist safety and occupational health manager Dr. Larson and accepted to medicine service for pancreatitis, IV hydration, pain control. Medical Records Medical records reviewed: Yes I reviewed the patient's medical records. Medical records narrative: Reviewed note most recent prior ED visit 02/20/22 Imaging Data Radiologic Study: Imaging: CT Scan Radiologist's impression: IMPRESSION: Findings suspicious for duodenitis. Other chronic appearing changes as noted. Lab Data Lab results reviewed: Yes I reviewed the patient's lab results. Labs: Laboratory Tests Range/Units 01/24/23 22:34 WBC (4.4-10.8) 10^3/uL 7.43 RBC (4.36-5.78) 10^6/uL 5.03 Hgb (13.5-17.5) g/dL 15.6 Hct (40.0-50.0) % 47.6 MCV (80-95) fL 95 MCH (27.0-33.0) pg 31.0 MCHC (32.0-36.0) % 32.8 RDW (11.8-14.1) % 14.0 Plt Count (130-400) 10^3/uL 150 MPV (8.0-11.0) fL 9.2 Immature Gran % 0.3 Neutrophils % 63.5 Lymphocytes % 19.2 Monocytes % 12.2 Eosinophils % 4.0 Basophils % 0.8 Nucleated RBC % (0.0-0.3) % 0.0 Absolute Neutrophils (1.2-6.7) 10^3/uL 4.71 Absolute Lymphocytes (1.2-3.4) 10^3/uL 1.43 Absolute Monocytes (0.1-0.8) 10^3/uL 0.91 H Absolute Eosinophils (0.0-0.7) 10^3/uL 0.30 Absolute Basophils (0.0-0.2) 10^3/uL 0.06 VBG Lactate (0.6-1.4) mmol/L 1.1 Sodium (136-145) mmol/L 137 Potassium (3.5-5.1) mmol/L 4.5 Chloride (98-107) mmol/L 106 Carbon Dioxide (21.0-32.0) mmol/L 24.4 Anion Gap (3-11) mmol/L 6.6 BUN (7-18) mg/dL 41 H Creatinine (0.70-1.30) mg/dL 2.4 H Est GFR (CKD-EPI 2020) (mL/min/1.73m2) 27.62 Glucose (74-106) mg/dL 128 H Calcium (8.5-10.1) mg/dL 9.0 Total Bilirubin (0.2-1.0) mg/dL 0.2 AST (15-37) U/L 14 L ALT (16-63) U/L 17 Alkaline Phosphatase (46-116) U/L 81 Total Protein (6.4-8.2) g/dL 7.8 Albumin (3.4-5.0) g/dL 3.4 Lipase (16-77) U/L > 375 H HPI General Mode of arrival: ambulatory. Date/Time Provider Initiated Documentation: 01/24/23 22:15. Limitations to Documentation: no limitations. Information obtained by: patient. HPI Narrative: 72yo F with hx of hypothyroid, HTN, COPD, CKD, presenting for severe abdominal pain. Symptoms started on thursday and have been worsening. Constant, dull, upper abdominal pain that radiates to both the right and left sides; earlier on in the week seemed more on the right, now seems more on the left. Does not radiate into the back. No new back pain. No nausea, vomiting, constipation, or diarrhea. No chest pain or shortness of breath at any point. Has never experienced similar symptoms before. He is otherwise in his usual state of health with no fevers, chills, rash, dysuria, hematuria, or other concerns. Related Data Home Medications Medication Instructions Recorded Confirmed levothyroxine 125 mcg tablet 1 tab PO DAILY 07/07/12 01/24/23 (Synthroid) fluticasone furoate 100 1 inh inhalation DAILY 09/09/21 01/24/23 mcg-vilanterol 25 mcg/dose inhalation powder (Breo Ellipta) lisinopril 20 mg tablet 20 mg PO DAILY 01/24/23 01/24/23 Allergies Allergy/AdvReac Type Severity Reaction Status Date / Time codeine [Codeine] AdvReac Severe Psychosis Unverified 01/24/23 22:20 acetaminophen [From Tylenol] AdvReac Intermediate Unverified 01/24/23 22:20 aspirin AdvReac Intermediate Unverified 01/24/23 22:20 oxycodone AdvReac Intermediate Nausea Unverified 01/24/23 22:20 General Stated Complaint: Abd Prob DARCY: 3 Review of Systems Narrative: see HPI PFSH All Active Problems (Updated 01/25/23 @ 00:14 by José Luis Larson) Duodenitis (Acute) Acute pancreatitis (Acute) Nicotine addiction (Acute) Renal insufficiency (Chronic) COPD (chronic obstructive pulmonary disease) (Chronic) Sebaceous cyst (Acute) Medical History Soft tissue mass Grief reaction Elevated blood sugar Syncope Snoring Panic attack Hypothyroidism Anxiety Osteoarthritis of right shoulder Surgical History H/O surgical procedure A. VASECTOMY B. DENTAL EXTRACTIONS C. RIGHT SHOULDER HEMIARTHROPLASTY WITH HUMERAL CAP PROSTHESIS 12/13/2013 Status post right shoulder hemiarthroplasty Social History Smoking/Tobacco Use Status: Current every day Tobacco Type: cigarettes Smoking risk assessment performed?: Yes Alcohol Intake: never Drug use: Never Substance use type: does not use Do you feel safe at home: Yes Do you feel safe in your relationship?: Yes Exam Narrative Exam Narrative: General: Alert, in no acute distress. Head: Normocephalic, atraumatic Neck: Trachea midline, Neck supple. ENT: MMM. Cardiac: RRR, no murmurs appreciated Resp: No respiratory distress. CTAB. Abd: Soft, non-distended. TTP of epigastrium with voluntary guarding. Severe upper abdominal pain with palpation with palpation of lower abdomen, however this is nonreproducible. : No suprapubic tenderness. Extremities: No deformities. No peripheral edema. Neurologic: GCS 15. Moves all extremities freely against gravity Course Vital Signs Vital signs: Vital Signs Temperature 36.2 C L 01/24/23 22:11 Pulse 75 01/24/23 22:11 Respiratory Rate 16 01/24/23 22:11 Blood Pressure 127/65 01/24/23 22:11 Pulse Oximetry 98 01/24/23 22:11 Temperature 36.2 C L 01/24/23 22:11 Temperature Source Temporal Artery Scan 01/24/23 22:11 Pulse 75 01/24/23 22:11 Respiratory Rate 16 01/24/23 22:11 Respiratory Effort Normal, Non-Labored 01/24/23 22:17 Blood Pressure 127/65 01/24/23 22:11 Blood Pressure Position Supine 01/24/23 22:11 Pulse Oximetry 98 01/24/23 22:11 Oxygen Delivery Method Room Air 01/24/23 22:11 Oxygen Flow Rate 0 01/24/23 22:11 Pain Level 6 01/24/23 22:11
[2023-01-24 22:38] LABS: Lactate 1.1 mmol/L (0.6-1.4)
[2023-01-24 22:40] LABS: Abs Immature Grans 0.02 10^3/uL (0.0-0.06); Absolute Basophil Count 0.06 10^3/uL (0.0-0.2); Absolute Lymphocyte Count 1.43 10^3/uL (1.2-3.4); Absolute Monocyte Count 0.91 10^3/uL (0.1-0.8); Absolute Neutrophil Count 4.71 10^3/uL (1.2-6.7); Basophils % 0.8; HCT 47.6 % (40.0-50.0); HGB 15.6 g/dL (13.5-17.5); Immature Grans % 0.3; Lymphocytes % 19.2; MCHC 32.8 % (32.0-36.0); MCV 95 fL (80-95); MPV 9.2 fL (8.0-11.0); Monocytes % 12.2; Neutrophils % 63.5; Platelet Count 150 10^3/uL (130-400); RBC 5.03 10^6/uL (4.36-5.78); RDW-SD 48.7 fL; WBC 7.43 10^3/uL (4.4-10.8)
[2023-01-24] MEDS: Ketorolac 15 MG/ML VIAL IVP (22:40)
[2023-01-24] MEDS: Normal Saline - Diluent 50 ML VIAL IJ (22:55)
[2023-01-24] MEDS: Omnipaque 350 MG/ML 100 ML BTL IJ (22:56)
[2023-01-24 22:57] LABS: ALT 17 U/L (16-63); AST 14 U/L (15-37); Albumin 3.4 g/dL (3.4-5.0); Alkaline Phosphatase 81 U/L (46-116); Anion Gap 6.6 mmol/L (3-11); BUN 41 mg/dL (7-18); Bilirubin, Total 0.2 mg/dL (0.2-1.0); CO2 24.4 mmol/L (21.0-32.0); CREATININE 2.4 mg/dL (0.70-1.30); Chloride 106 mmol/L (98-107); Estimated GFR 27.62 (mL/min/1.73m2); Glucose 128 mg/dL (74-106); Lipase > 375 U/L (16-77); Potassium 4.5 mmol/L (3.5-5.1); Sodium 137 mmol/L (136-145); Total Protein 7.8 g/dL (6.4-8.2)
[2023-01-24] MEDS: Normal Saline 1,000 ML 1000 ML IV (23:33)
[2023-01-24 23:34] LABS: Source Nasal/Nares
--- NOTE | 2023-01-24 23:40 | DI.VRAD_ITS ---
PROCEDURE INFORMATION: Exam: CT Abdomen And Pelvis With Contrast Exam date and time: 01/24/2023 10:58 PM Age: 72 years old Clinical indication: Other: Ruq and luq abdominal pain, evere, crampy, tp; Patient HX: Ruq and luq abdominal pain, evere, crampy, ttp TECHNIQUE: Imaging protocol: Computed tomography of the abdomen and pelvis with contrast. Contrast material: OMNIPAQUE 350; Contrast volume: 100 ml; Contrast route: INTRAVENOUS (IV); COMPARISON: CT RENAL COLIC WO 02/20/2022 4:45 AM FINDINGS: Liver: A few scattered simple appearing subcentimeter cysts noted in the liver. Liver is otherwise unremarkable. Gallbladder and bile ducts: Gallbladder is contracted but otherwise unremarkable. Pancreas: Normal. No ductal dilation. Spleen: Normal. No splenomegaly. Adrenal glands: Normal. No mass. Kidneys and ureters: Simple appearing small bilateral renal cortical cysts. No solid renal mass or hydronephrosis. Stomach and bowel: There is suggestion of fold thickening of the duodenal compatible with enteritis. No evidence of bowel obstruction. Stomach appears unremarkable. Appendix: No evidence of appendicitis. Intraperitoneal space: Unremarkable. No free air. No significant fluid collection. Vasculature: Mild scattered atherosclerotic calcification of the aorta. No evidence of aneurysm or dissection. Lymph nodes: Unremarkable. No enlarged lymph nodes. Urinary bladder: Unremarkable as visualized. Reproductive: Unremarkable as visualized. Bones/joints: Moderate to severe multilevel degenerative disc changes in the lower spine. Disc bulge and uncovertebral spurring produce [id number] multilevel spinal stenosis. No vertebral body compression or acute fracture. Soft tissues: Unremarkable. IMPRESSION: Findings suspicious for duodenitis. Other chronic appearing changes as noted. Dictated and Authenticated by: Gray Riley MD. Ordering:JOHN Garcia MD
[2023-01-24 23:48] LABS: LDH 147 U/L (85-227)
[2023-01-25] VITALS (9 sets, daily range): BP systolic 113–150; BP diastolic 62–76; PULSE 51–75; RESP 14–20; TEMP 35.6–36.5; O2SAT 96–98
[2023-01-25 00:03] LABS: COVID-19 PCR Negative (Negative)
--- NOTE | 2023-01-25 00:12 | W.PM.HP.N ---
Date of service: 01/25/23 Time of Service: 00:12 Assessment and Plan Assessment and plan (1) Acute pancreatitis: Start date: 01/25/23 Status: Acute Assessment and plan: This is 72-year-old gentleman who presents with a similar episode of abdominal pain 1 year prior to this admission but negative evaluation at that time and return home. This visit the patient did have an elevated lipase where his lipase was normal last time and he may have had more flank pain with a negative CT of the abdomen renal colic. Did have slight hematuria at that time and urinalysis is pending now. His exam and history this time is more right upper quadrant pain as well as epigastric pain at the time of my exam. His lipase was elevated he did have evidence of duodenitis on CT which will be observed on Protonix IV. He does not give a history of increased use of NSAIDs recently but does have significant degenerative disease of his lumbar spine by imaging. He denies that food is making his abdominal pain worse he is n.p.o. with IV hydration for now having worsening renal insufficiency on lisinopril. He denies any fluid loss with or diarrhea. He does need an ultrasound of his gallbladder and possible HIDA scan with the recurrent episodes most likely gallstone related pancreatitis at least with this presentation. He does have right upper quadrant discomfort with palpation but no Arias sign at this time. Surgical consultation was not sought the patient not appearing acute. He is a full code. (2) Duodenitis: Start date: 01/25/23 Status: Acute Assessment and plan: Mild by CT scan with patient placed on IV Protonix and could go home on oral Protonix temporarily. He does deserve an EGD in the future for further evaluation. He is a smoker. (3) Acute dehydration: Start date: 01/25/23 Status: Acute Assessment and plan: Patient has chronic renal sufficiency and the creatinine is mildly elevated from baseline. IV hydration trend labs. Hold lisinopril for now. (4) Hypothyroidism: Assessment and plan: Check TSH and continue Synthroid at outpatient dosing. (5) COPD (chronic obstructive pulmonary disease): Status: Chronic Assessment and plan: Continue inhalers. I (6) HTN (hypertension): Status: Chronic Assessment and plan: Normotensive upon presentation despite discomfort. Hold lisinopril for now. History of Present Illness History of Present Illness Chief Complaint: Right upper quadrant abdominal pain Narrative: This is a 72-year-old gentleman who has had a history of acute right upper quadrant or right flank pain in January 2022 which was seen in the ED with a negative CT renal colic considering a renal stone that time. He did have slight hematuria at that time. He presents to the ED late the day prior to admission with stuttering, right upper quadrant discomfort which he cannot describe as colic and does not radiate into his back or shoulder and he cannot associate with meals. He denies any nausea or vomiting. When seen in the ED he had a CT of the abdomen pelvis which revealed duodenitis but essentially normal gallbladder though contracted and normal pancreas. He did not have epigastric discomfort but right upper quadrant discomfort. He is quite talkative and appears comfortable. He did receive IV Toradol which helped his discomfort. He had no change in bowel habits. He denies any anorexia or weight loss. The patient was comfortable being n.p.o. this will be continued with IV fluid hydration patient slightly dry from his baseline renal insufficiency. He does need further evaluation with ultrasound gallbladder and possible HIDA scan but if he is more comfortable this can be done as outpatient if stabilizing. His lipase was elevated this will be trended in the morning. He is on minimal meds taken only if Breo Ellipta, Synthroid for hypothyroidism and low-dose lisinopril for hypertension. He is a full code. Review of Systems Narrative: 13 point review of systems otherwise unrevealing or stable. Patient has had no weight loss or heartburn. Patient does smoke daily. PFSH All Active Problems (Updated 01/25/23 @ 00:26 by José Luis Larson) HTN (hypertension) (Chronic) Acute dehydration (Acute) Duodenitis (Acute) Acute pancreatitis (Acute) Nicotine addiction (Acute) Renal insufficiency (Chronic) COPD (chronic obstructive pulmonary disease) (Chronic) Sebaceous cyst (Acute) Medical History Soft tissue mass Grief reaction Elevated blood sugar Syncope Snoring Panic attack Hypothyroidism Anxiety Osteoarthritis of right shoulder Surgical History H/O surgical procedure A. VASECTOMY B. DENTAL EXTRACTIONS C. RIGHT SHOULDER HEMIARTHROPLASTY WITH HUMERAL CAP PROSTHESIS 12/13/2013 Status post right shoulder hemiarthroplasty Social History Smoking/Tobacco Use Status: Current every day Tobacco Type: cigarettes Smoking risk assessment performed?: Yes Alcohol Intake: never Drug use: Never Substance use type: does not use Housing: house Do you feel safe at home: Yes Do you feel safe in your relationship?: Yes Meds Allergies and Home Medications Allergies Allergy/AdvReac Type Severity Reaction Status Date / Time codeine [Codeine] AdvReac Severe Psychosis Unverified 01/24/23 22:20 acetaminophen [From Tylenol] AdvReac Intermediate Unverified 01/24/23 22:20 aspirin AdvReac Intermediate Unverified 01/24/23 22:20 oxycodone AdvReac Intermediate Nausea Unverified 01/24/23 22:20 Home Medications Medication Instructions Recorded Confirmed Type levothyroxine 125 mcg tablet 1 tab PO DAILY 07/07/12 01/24/23 History (Synthroid) fluticasone furoate 100 1 inh inhalation DAILY 09/09/21 01/24/23 History mcg-vilanterol 25 mcg/dose inhalation powder (Breo Ellipta) lisinopril 20 mg tablet 20 mg PO DAILY 01/24/23 01/24/23 History Exam Narrative Exam Narrative: General: Patient appears older than stated age, slightly unkempt alert and oriented x3. He is in no acute distress. HEENT: Normocephalic, eyes with pupils equal and reactive to light symmetrically, extraocular movement intact and sclera anicteric. Poor dentition with many missing teeth and remaining teeth discolored and carious. Oral mucosa with slightly dry mucosa. Neck: Supple without JVD. Back: Stooped posture without CVA tenderness. Lungs: Bronchovesicular breath sounds diffusely with fair aeration and diffuse coarse crackles without focalizing. No rales. No rhonchi. Slightly increased expiratory phase but no expiratory wheeze. Heart: Regular rate and rhythm with no murmurs or gallops appreciated. Abdomen: Normal contour, soft with focal tenderness over right upper quadrant but no positive Arias sign. No tenderness over the epigastrium. No palpable hepatosplenomegaly. Bowel sounds positive all quadrants. Genitalia/rectal: Exam deferred. Extremities: No clubbing, cyanosis or grossly pitting edema. Peripheral pulses intact. Skin: Normal color, warm and dry. Neuro: Cranial nerves II through XII gross intact, no focal motor deficits. No tremor. Psych: Slightly anxious with pressured speech, otherwise normal mood. No abnormal thought processes. Remote and recent memory grossly intact. Results Imaging Imaging Studies: Exam: CT Abdomen And Pelvis With Contrast Exam date and time: 01/24/2023 10:58 PM Age: 72 years old Clinical indication: Other: Ruq and luq abdominal pain, evere, crampy, tp; Patient HX: Ruq and luq abdominal pain, severe, crampy, ttp COMPARISON: CT RENAL COLIC WO 02/20/2022 4:45 AM FINDINGS: Liver: A few scattered simple appearing subcentimeter cysts noted in the liver. Liver is otherwise unremarkable. Gallbladder and bile ducts: Gallbladder is contracted but otherwise unremarkable. Pancreas: Normal. No ductal dilation. Spleen: Normal. No splenomegaly. Adrenal glands: Normal. No mass. Kidneys and ureters: Simple appearing small bilateral renal cortical cysts. No solid renal mass or hydronephrosis. Stomach and bowel: There is suggestion of fold thickening of the duodenal compatible with enteritis. No evidence of bowel obstruction. Stomach appears unremarkable. Appendix: No evidence of appendicitis. Intraperitoneal space: Unremarkable. No free air. No significant fluid collection. Vasculature: Mild scattered atherosclerotic calcification of the aorta. No evidence of aneurysm or dissection. Lymph nodes: Unremarkable. No enlarged lymph nodes. Urinary bladder: Unremarkable as visualized. Reproductive: Unremarkable as visualized. Bones/joints: Moderate to severe multilevel degenerative disc changes in the lower spine. Disc bulge and uncovertebral spurring produce [id number] multilevel spinal stenosis. No vertebral body compression or acute fracture. Soft tissues: Unremarkable. IMPRESSION: Findings suspicious for duodenitis. Other chronic appearing changes as noted. Labs 01/24/23 22:34 01/24/23 22:34 Labs: Laboratory Results - last 24 hr 01/24/23 01/24/23 22:34 23:28 WBC 7.43 RBC 5.03 Hgb 15.6 Hct 47.6 MCV 95 MCH 31.0 MCHC 32.8 RDW 14.0 Plt Count 150 MPV 9.2 Immature Gran % 0.3 Neutrophils % 63.5 Lymphocytes % 19.2 Monocytes % 12.2 Eosinophils % 4.0 Basophils % 0.8 Nucleated RBC % 0.0 Absolute Neutrophils 4.71 Absolute Lymphocytes 1.43 Absolute Monocytes 0.91 H Absolute Eosinophils 0.30 Absolute Basophils 0.06 VBG Lactate 1.1 Sodium 137 Potassium 4.5 Chloride 106 Carbon Dioxide 24.4 Anion Gap 6.6 BUN 41 H Creatinine 2.4 H Est GFR (CKD-EPI 2020) 27.62 Glucose 128 H Calcium 9.0 Total Bilirubin 0.2 AST 14 L ALT 17 Alkaline Phosphatase 81 Lactate Dehydrogenase 147 Total Protein 7.8 Albumin 3.4 Lipase > 375 H COVID-19 Source Nasal/Nares SARS-CoV-2 (PCR) Negative Last Vital Signs Temp 36.2 C L 01/24/23 22:11 Pulse 75 01/24/23 22:11 Resp 16 01/24/23 22:11 BP 127/65 01/24/23 22:11 Pulse Ox 98 01/24/23 22:11 Time Spent Time spent with Patient: >75 minutes Time was spent: preparing to see the patient(eg.review tests), obtaining and/or reviewing separately otained hiistory, ordering medications,tests, procedures, referring, communicating with other health ambulatory care coordinator and indepentently interpreting results
[2023-01-25] MEDS: Normal Saline 1,000 ML 125 ML IV ×3 (01:31→16:00)
[2023-01-25] MEDS: Pantoprazole 40 MG VIAL IVP (02:34)
[2023-01-25] MEDS: Levothyroxine 125 MCG TAB PO (05:11)
[2023-01-25] MEDS: Ketorolac 15 MG/ML VIAL IVP ×4 (05:11→21:30)
[2023-01-25] MEDS: Heparin 5,000 UNITS/ML VIAL 5000 UNITS SC ×3 (05:12→21:30)
[2023-01-25 06:34] LABS: HGB 14.2 g/dL (13.5-17.5); MCH 31.2 pg (27.0-33.0); MCV 95 fL (80-95); MPV 9.8 fL (8.0-11.0); Platelet Count 137 10^3/uL (130-400); RBC 4.55 10^6/uL (4.36-5.78); RDW 14.1 % (11.8-14.1); RDW-SD 48.9 fL; WBC 6.02 10^3/uL (4.4-10.8)
[2023-01-25 06:57] LABS: ALT 11 U/L (16-63); AST 16 U/L (15-37); Albumin 2.8 g/dL (3.4-5.0); Alkaline Phosphatase 68 U/L (46-116); Anion Gap 10.7 mmol/L (3-11); BUN 41 mg/dL (7-18); Bilirubin, Total 0.2 mg/dL (0.2-1.0); CO2 19.3 mmol/L (21.0-32.0); CREATININE 2.4 mg/dL (0.70-1.30); Calcium 8.4 mg/dL (8.5-10.1); Chloride 110 mmol/L (98-107); Estimated GFR 27.62 (mL/min/1.73m2); Glucose 97 mg/dL (74-106); Magnesium 1.8 mg/dL (1.8-2.4); Potassium 4.6 mmol/L (3.5-5.1); Sodium 140 mmol/L (136-145); TSH (W/Ref FT4) 1.15 uIU/mL (0.36-3.74); Total Protein 6.8 g/dL (6.4-8.2)
[2023-01-25 06:58] LABS: Lipase > 375 U/L (16-77)
--- NOTE | 2023-01-25 08:42 | PDOC.CMIN ---
Date of service: 01/25/23 Time of Service: 08:42 Care Management Initial Assmt Initial Assessment REASON FOR HOSPITALIZATION:: pancreatitis PREVIOUS FUNCTIONAL STATUS/SOCIAL/FAMILY SUPPORTS:: Tevin lives alone in a log home he built in [place], [place] His Pat a little over 2 years ago. Tevin has 2 adult children and several grandchildren but all of them live out of state. He is close to one of his 's cousins and her and they have been supportive. Tevin is retired but worked for over 30 years at [employer] in [facility]. He is independent at baseline and does not receive any community services. CURRENT FUNCTIONAL STATUS:: Tevin was sitting up in bed when CM met with him. He was agreeable to conversation and engaged well with CM. Tevin spent much of the time talking about his who . He shared that they had been together for 52 years and that he has been lost since she . He became teary and emotional several times during the conversation. He informed CM that he is not a very social person and fears that he did not tell his often enough how much she meant to him. He repeatedly stated that he does not feel he did enough but was a bit vague about what he feels he did not do. Tevin does not seem to be close to his children. One lives in [place] and the other is in [place]. He stated his daughter ran away from a situation and his son had a stroke about 5 years ago. Tevin also reported that he is not easy to please and is a perfectionist. ADVANCE DIRECTIVES:: none on file Has patient been provided with info about the portal/API?: Yes Did the patient sign up for the portal?: No CODE STATUS:: Full Code INSURANCE COVERAGE / FINANCIAL ISSUES:: Medicare / Federal CURRENT HOME/COMMUNITY SERVICES/EQUIPMENT:: has a cane, walker and transport chair from his 's illness. PRIMARY CARE PHYSICIAN:: Yesy Galvan POTENTIAL DISCHARGE NEEDS:: follow up with PCP and plan of care PATIENT/FAMILY EDUCATION NEEDS:: Review of discharge instructions, diet, limitations, follow up plan, discuss Ask me Three TRANSPORTATION:: via private vehicle with family PLAN:: Anticipate Tevin will be discharged home with no new services. He will follow up with his PCP and plan of care and transport with family. CM will continue to support Tevin and his discharge planning needs. PFSH All Active Problems (Updated 01/25/23 @ 00:26 by José Luis Larson) HTN (hypertension) (Chronic) Acute dehydration (Acute) Duodenitis (Acute) Acute pancreatitis (Acute) Nicotine addiction (Acute) Renal insufficiency (Chronic) COPD (chronic obstructive pulmonary disease) (Chronic) Sebaceous cyst (Acute) Medical History Soft tissue mass Grief reaction Elevated blood sugar Syncope Snoring Panic attack Hypothyroidism Anxiety Osteoarthritis of right shoulder Surgical History H/O surgical procedure A. VASECTOMY B. DENTAL EXTRACTIONS C. RIGHT SHOULDER HEMIARTHROPLASTY WITH HUMERAL CAP PROSTHESIS 12/13/2013 Status post right shoulder hemiarthroplasty Social History Smoking/Tobacco Use Status: Current every day Tobacco Type: cigarettes Smoking risk assessment performed?: Yes Alcohol Intake: never Drug use: Never Substance use type: does not use Housing: house Do you feel safe at home: Yes Do you feel safe in your relationship?: Yes
[2023-01-25] MEDS: Budesonide/Formoterol 80/4.5 6.9 GM 60 PUFF INH IH (08:51)
[2023-01-25] MEDS: Normal Saline Flush 10 ML SYR (09:55)
[2023-01-25 15:21] LABS: BUN 41 mg/dL (7-18); CREATININE 2.4 mg/dL (0.70-1.30); Calcium 8.3 mg/dL (8.5-10.1); Chloride 109 mmol/L (98-107); Estimated GFR 27.62 (mL/min/1.73m2); Glucose 84 mg/dL (74-106); Potassium 4.9 mmol/L (3.5-5.1); Sodium 140 mmol/L (136-145)
[2023-01-26] MEDS: Pantoprazole 40 MG VIAL IVP (03:33)
[2023-01-26] MEDS: Normal Saline 1,000 ML 125 ML IV (03:34)
[2023-01-26] MEDS: Ketorolac 15 MG/ML VIAL IVP ×2 (03:34→10:47)
[2023-01-26] MEDS: Levothyroxine 125 MCG TAB PO (05:23)
[2023-01-26] MEDS: Heparin 5,000 UNITS/ML VIAL 5000 UNITS SC (05:23)
[2023-01-26 06:53] LABS: HCT 41.4 % (40.0-50.0); HGB 13.4 g/dL (13.5-17.5); MCH 30.8 pg (27.0-33.0); MCHC 32.4 % (32.0-36.0); MCV 95 fL (80-95); MPV 9.8 fL (8.0-11.0); Platelet Count 119 10^3/uL (130-400); RBC 4.35 10^6/uL (4.36-5.78); RDW 13.8 % (11.8-14.1); RDW-SD 48.7 fL; WBC 4.93 10^3/uL (4.4-10.8)
[2023-01-26 07:06] LABS: Anion Gap 11.7 mmol/L (3-11); BUN 34 mg/dL (7-18); CO2 19.3 mmol/L (21.0-32.0); CREATININE 2.2 mg/dL (0.70-1.30); Calcium 8.3 mg/dL (8.5-10.1); Chloride 112 mmol/L (98-107); Estimated GFR 30.66 (mL/min/1.73m2); Glucose 75 mg/dL (74-106); Sodium 143 mmol/L (136-145)
--- NOTE | 2023-01-26 08:00 | DI.US_ITS ---
Exam(s) US ABDOMEN LIMITED EXAM: US ABDOMEN LIMITED CLINICAL HISTORY: Acute pancreatitis TECHNIQUE: Ultrasound abdomen performed using standard protocol. COMPARISON: CT CT ABDOMEN PELVIS W from 01/24/2023 FINDINGS: LIVER: Normal size. Normalechogenicity. Cysts again noted in the left lobe of the liver. GALLBLADDER: Focal ring down artifact seen at the gallbladder wall consistent with focal adenomyomato sis. No evidence of cholelithiasis. No evidence of wall thickening. No pericholecystic fluid identif ied. RONDON'S SIGN: Negative. BILIARY SYSTEM: No intrahepatic or extrahepatic biliary ductal dilation. RIGHT KIDNEY: Normal size. No evidence of renal calculi. No evidence of hydronephrosis. No suspicious renal mass. Several small cysts. PANCREAS: Normal where visualized. ABDOMINAL AORTA AND IVC: Visualized portions normal caliber. ASCITES: None seen. IMPRESSION: Focal area of adenomyomatosis of the gallbladder wall. No evidence of cholelithiasis or biliary dila tation. No abnormality of the pancreas visible. DATA REPOSITORY:
[2023-01-26] MEDS: Budesonide/Formoterol 80/4.5 6.9 GM 60 PUFF INH IH (08:05)
[2023-01-26] MEDS: Normal Saline Flush 10 ML SYR IVP (10:45)
--- NOTE | 2023-01-26 12:10 | W.PM.DS.N ---
Date of service: 01/26/23 Time of Service: 12:10 DS: Diagnosis Discharge Diagnosis (1) Acute pancreatitis: Status: Acute Asessment and Plan: Etiology unclear. No evidence of gallstones. No ductal dilitation. Pt does not drink. His initial pain was in the RUQ and likely GB related d/t adenomyomatosis. Tolerating full liquids. Low fat diet discussed. (2) Adenomyomatosis of gallbladder: Status: Acute Asessment and Plan: Focal area of thickening. Outpt consult with general surgery recommended but patient states he will no go under the knife. Certainly if he has another episode he should reconsider. Low fat diet recommended. (3) BAN (acute kidney injury): Status: Acute Asessment and Plan: Initial creatinine of 2.4. It did improve to 2.2. IV hydration administered. Unclear of his baseline creatinine. BMP as outpt in 3 days. (4) Hypothyroidism: Asessment and Plan: Continue replacement therapy. (5) COPD (chronic obstructive pulmonary disease): Status: Chronic Asessment and Plan: No exaqcerbation. Continue Home inhaler tx. (6) HTN (hypertension): Status: Chronic Asessment and Plan: Continue lisinopril. Discharge Plan Disposition Patient Disposition: Home Condition: Good Discharge Details Reason For Visit: Acute Pancreatitis Admit Date/Time: 01/25/23 00:14 Admit Provider: José Luis Larson Attending Provider: José Luis Larson Primary Care Provider: Yesy Galvan [facility] Course Hospital Course: This is a 72-year-old gentleman who has had a history of acute right upper quadrant or right flank pain in January 2022 which was seen in the ED with a negative CT renal colic considering a renal stone that time. He did have slight hematuria at that time. He presents to the ED late the day prior to admission with stuttering, right upper quadrant discomfort which he cannot describe as colic and does not radiate into his back or shoulder and he cannot associate with meals. He denies any nausea or vomiting. The RUQ pain started the Wed prior to admission. Appx 2 days later he developed LUQ pain and then the pain coalesced into the entire upper abd. He drove himself to the hospital. CT abd/pelvis w/o abnormal findings. He is quite talkative and appeared comfortable. He did receive IV Toradol which helped his discomfort. He had no change in bowel habits. He denied any anorexia or weight loss. The patient was comfortable being n.p.o. this will be continued with IV fluid hydration patient slightly dry from his baseline renal insufficiency. His lipase was elevated. See diagnosis PCP f/u in 1-2 weeks. Home Meds and New Rx's Prescriptions: Continued fluticasone furoate-vilanterol [Breo Ellipta] 100-25 mcg/dose blister with device 1 inh inhalation DAILY levothyroxine [Synthroid] 125 MCG tablet 1 tab PO DAILY lisinopril 20 mg tablet 20 mg PO DAILY Discharge Instructions Referrals: Jah Dickey MD [ [facility]YSICIAN] - (Pancreatitis that began with RUQ pain. adenomyomatosis of GB.) Activity:: Activity as Tolerated Equipment/Supplies:: No Equipment Needed Diet:: Low fat Discharge Orders Discharge Orders: Discharge Order (Routine); Ordered 01/26/23 Ordered By: Siddhartha De La Torre Other Ambulatory Orders: Basic Metabolic Panel (Routine) Timeframe: 3 Days Location: None Selected Ordered By: Siddhartha De La Torre DS: Summary Time Spent with Patient providing and/or coordinating discharge services: Greater than 30 minutes Status at Discharge Functional status at discharge: independent ambulation Overall status at discharge: patient is back to baseline Mental Status: mental status grossly normal Speech and Movement: speech and movement normal Mood: anxious mood Affect: anxious affect Exam Narrative Exam Narrative: General: Pleasant. NAD. No c/o pain and tolerated full liquids HEENT: MMM sclera clear. Neck: Supple without JVD.. Lungs: Clear. Mildly diminished breath sounds. Heart: Regular rate and rhythm with no murmurs or gallops appreciated. Abdomen: Soft, NT, ND. Extremities: No clubbing, cyanosis or grossly pitting edema. No calf pain. Neuro: no focal motor deficits. No tremor. Psych: Slightly anxious with pressured speech, otherwise normal mood. Psych Mental Status: mental status grossly normal Speech and Movement: speech and movement normal Mood: anxious mood Affect: anxious affect DS: Data Vitals/I&O Vitals and I&O: Vital Signs Temperature 36.2 C L 01/25/23 23:11 Temperature Source Tympanic 01/25/23 23:11 Pulse 56 L 01/25/23 23:11 Pulse Rhythm Regular 01/26/23 07:35 Respiratory Rate 18 01/25/23 23:11 Respiratory Effort Normal, Non-Labored 01/26/23 07:35 Respiratory Depth Normal 01/26/23 07:35 Respiratory Pattern Normal 01/26/23 07:35 Blood Pressure 127/70 01/25/23 23:11 Blood Pressure Position Supine 01/25/23 00:56 Pulse Oximetry 97 01/25/23 23:11 Oxygen Delivery Method Room Air 01/25/23 23:11 Oxygen Flow Rate 0 01/25/23 23:11 Pain Level 0 01/26/23 10:47 Intake & Output 01/25/23 01/26/23 01/26/23 23:59 11:59 23:59 Intake Total 2074.583 / 4074.583 1000 / 1000 Output Total 200 / 400 1300 / 1300 Balance 1874.583 / 3674.583 -300 / -300 Weight 75.1 kg Intake: IV 764.583 / 2764.583 1000 / 1000 Oral 1310 / 1310 0 / 0 Output: Urine 200 / 400 1300 / 1300 Other: Urine Color Yellow Straw Urine Appearance Clear Clear Urine Odor Normal None Comment pT stated he used the urinal recently Voiding Methods Urinal Toilet Data Completed and Pending Labs on day of discharge: Labs from last 24 hours 01/26/23 01/25/23 01/24/23 06:02 15:01 22:34 WBC 4.93 RBC 4.35 L Hgb 13.4 L Hct 41.4 MCV 95 MCH 30.8 MCHC 32.4 RDW 13.8 Plt Count 119 L MPV 9.8 Sodium 143 140 Potassium 5.0 4.9 Chloride 112 H 109 H Carbon Dioxide 19.3 L 23.0 Anion Gap 11.7 H 8.0 BUN 34 H 41 H Creatinine 2.2 H 2.4 H Est GFR (CKD-EPI 2020) 30.66 27.62 Glucose 75 84 Calcium 8.3 L 8.3 L Urine Color Cancelled Urine Clarity Cancelled Urine pH Cancelled Ur Specific [place] Cancelled Urine Protein Cancelled Urine Ketones Cancelled Urine Blood Cancelled Urine Nitrite Cancelled Urine Bilirubin Cancelled Urine Urobilinogen Cancelled Ur Leukocyte Esterase Cancelled Urine Glucose Cancelled PFSH All Active Problems (Updated 01/26/23 @ 12:37 by Siddhartha De La Torre MD) BAN (acute kidney injury) (Acute) Adenomyomatosis of gallbladder (Acute) HTN (hypertension) (Chronic) Acute dehydration (Acute) Duodenitis (Acute) Acute pancreatitis (Acute) Nicotine addiction (Acute) Renal insufficiency (Chronic) COPD (chronic obstructive pulmonary disease) (Chronic) Sebaceous cyst (Acute) Medical History Soft tissue mass Grief reaction Elevated blood sugar Syncope Snoring Panic attack Hypothyroidism Anxiety Osteoarthritis of right shoulder Surgical History H/O surgical procedure A. VASECTOMY B. DENTAL EXTRACTIONS C. RIGHT SHOULDER HEMIARTHROPLASTY WITH HUMERAL CAP PROSTHESIS 12/13/2013 Status post right shoulder hemiarthroplasty Social History Smoking/Tobacco Use Status: Current every day Tobacco Type: cigarettes Smoking risk assessment performed?: Yes Alcohol Intake: never Drug use: Never Substance use type: does not use Housing: house Do you feel safe at home: Yes Do you feel safe in your relationship?: Yes Time Spent with Patient Time Spent with Patient: 45-69 minutes Time was spent: preparing to see the patient(eg.review tests), obtaining and/or reviewing separately otained hiistory, ordering medications,tests, procedures, referring, communicating with other health home child care provider, indepentently interpreting results, counseling the patient and care coordination
--- NOTE | 2023-01-26 17:24 | PDOC.CMDIS ---
Date of service: 01/26/23 Time of Service: 17:24 LACE Index Scoring Tool Questions: Length of Stay (in days): 1 Was the patient admitted via the E.D.?: Yes Comorbidities: Chronic Pulmonary Disease and Mild Liver/Renal Disease E.D. Visits: 1 Answers: Total Score: 10 Risk of Readmission: High Risk Care Management Discharge Plan Reason for Hospitalization: pancreatitis Discharge Plan: Tevin will be discharged home with no new services. He will follow up with his PCP and plan of care and transport with family. Patient/Family Education Needs: Review of discharge instructions, diet, limitations, follow up plan, discuss Ask me Three
== END 2023-01-26 14:05 | disposition home or self-care (01) ==
LOC: ER 01-25 00:24 → MS 01-26 10:59
PROVIDERS: Family Medicine; Admitting Provider Family Medicine; Emergency Provider Student in an Organized Health Care Education/Training Program; PCP Family Medicine; Visit Provider Family Medicine
DX: K85.90 Acute pancreatitis without necrosis or infection, unspecified (principal); E86.0 Dehydration; K29.80 Duodenitis without bleeding; J44.9 Chronic obstructive pulmonary disease, unspecified; E03.9 Hypothyroidism, unspecified; N17.9 Acute kidney failure, unspecified; I10 Essential (primary) hypertension; F17.210 Nicotine dependence, cigarettes, uncomplicated; F41.0 Panic disorder [episodic paroxysmal anxiety]; D13.5 Benign neoplasm of extrahepatic bile ducts; Z79.899 Other long term (current) drug therapy
CPT/HCPCS: 00123; 36415; 80048; 80053; 83690; 85027; 87635; 93005; 94640; 96361; 96374; 96375; 96376; 99285; 74177; 76705; 81003; 83605; 83615; 83735; 84443; 85025; 93010; 94664; 99223; 99239; G0378; J1644; J1885; J3490

== ENCOUNTER 2023-01-28 13:13 | Outpatient (CLI) | payer MEDICARE, BC, SELFPAY ==
[2023-01-28 12:06] LABS: Anion Gap 6.5 mmol/L (3-11); BUN 33 mg/dL (7-18); CO2 24.5 mmol/L (21.0-32.0); CREATININE 2.3 mg/dL (0.70-1.30); Calcium 9.5 mg/dL (8.5-10.1); Chloride 106 mmol/L (98-107); Estimated GFR 29.07 (mL/min/1.73m2); Glucose 92 mg/dL (74-106); Sodium 137 mmol/L (136-145)
== END 2023-01-28 13:14 | disposition home or self-care (01) ==
LOC: LBO 13:17
PROVIDERS: PCP Family Medicine; Visit Provider Family Medicine
DX: N28.9 Disorder of kidney and ureter, unspecified (principal)
CPT/HCPCS: 36415; 80048

== ENCOUNTER → 2023-02-04 09:36 | Outpatient (BNVA) | payer MEDICARE, BC, SELFPAY | PROVIDERS: PCP Family Medicine; Referring Provider Family Medicine; Visit Provider Surgery | DX: D13.5 Benign neoplasm of extrahepatic bile ducts (principal); F17.210 Nicotine dependence, cigarettes, uncomplicated | CPT/HCPCS: 99214 ==

== ENCOUNTER 2023-09-21 05:01 | Emergency (ER) | payer MEDICARE, BC, SELFPAY ==
[2023-09-21 05:06] VITALS: BP 117/79; PULSE 79; RESP 18; TEMP 36.4; O2SAT 99
--- NOTE | 2023-09-21 05:07 | W.ED.GENAD ---
Discharge Plan Disposition Patient Disposition: Home Condition: Improving Discharge Details Clinical Impression: Right sided sciatica Primary Care Provider: Yesy Galvan ED Provider: Adelso Joe Meds and New Rx's Prescriptions: New acetaminophen 500 mg tablet 1,000 mg PO TID Qty: 40 0RF lidocaine 5 % adhesive patch,medicated 1 patch topical DAILY Qty: 15 0RF Rx Instructions: leave on most painful area for up to 12 hrs methylprednisolone [Medrol (Caio)] 4 mg tablets,dose pack See Rx Instructions .ROUTE .COMPLEX Qty: 21 0RF Rx Instructions: orally per package directions Continued fluticasone furoate-vilanterol [Breo Ellipta] 100-25 mcg/dose blister with device 1 inh inhalation DAILY levothyroxine [Synthroid] 125 MCG tablet 1 tab PO DAILY lisinopril 20 mg tablet 20 mg PO DAILY Discharge Instructions Instructions: Sciatica ED Additional Instructions: You were seen in the ED for right sided back pain radiating down your leg consistent with sciatica. You are given acetaminophen and lidocaine patch with improvement. Continue acetaminophen 1 g 3 times a day. Lidocaine patch may be applied for 12 hours and removed for 12 hours. Avoid nonsteroidal medication such as Motrin, Aleve, Advil. We will try you on a Medrol Dosepak to help with inflammation and irritation causing nerve pain. You should call primary care today for follow-up appointment later this week. You should return to the ED if you develop any bladder or bowel issues, numbness or weakness in the legs, significantly worsening pain, other concerns. Referrals: Yesy Galvan [Primary Care Provider] - [facility] General Mode of arrival: wheelchair. Date/Time Provider Initiated Documentation: 09/21/23 05:07. Limitations to Documentation: no limitations. Information obtained by: patient. HPI Narrative: Patient presents to ED with complaint of right back pain radiating down his right leg to the ankle. Symptoms began a week ago. He was unable to sleep last night. He has not taken anything for the pain nor has he called primary care. Drove himself here this morning which aggravated his pain. He denies any injury. He denies any abdominal pain. He has no difficulty with urination or defecation. Denies any numbness, tingling, weakness. Has had something similar to this many years ago. Did not take any Tylenol because he states it gives him a buzz. Also has not taking any Aleve or Motrin because of prior chronic use. Related Data Home Medications Medication Instructions Recorded Confirmed levothyroxine 125 mcg tablet 1 tab PO DAILY 07/07/12 09/21/23 (Synthroid) fluticasone furoate 100 1 inh inhalation DAILY 09/09/21 09/21/23 mcg-vilanterol 25 mcg/dose inhalation powder (Breo Ellipta) lisinopril 20 mg tablet 20 mg PO DAILY 01/24/23 09/21/23 acetaminophen 500 mg tablet 1,000 mg (2 x 500 mg) PO TID #40 09/21/23 tabs lidocaine 5 % topical patch 1 patch topical DAILY #15 ea 09/21/23 methylprednisolone 4 mg tablets in See Rx Instructions PO .COMPLEX 09/21/23 a dose pack (Medrol (Caio)) #21 dose pk Previous Rx's Medication Instructions Recorded acetaminophen 500 mg tablet 1,000 mg (2 x 500 mg) PO TID #40 09/21/23 tabs lidocaine 5 % topical patch 1 patch topical DAILY #15 ea 09/21/23 methylprednisolone 4 mg tablets in See Rx Instructions PO .COMPLEX 09/21/23 a dose pack (Medrol (Caio)) #21 dose pk Allergies Allergy/AdvReac Type Severity Reaction Status Date / Time codeine [Codeine] AdvReac Severe Psychosis Unverified 09/21/23 05:13 acetaminophen [From Tylenol] AdvReac Intermediate Skin Rash Unverified 09/21/23 05:13 aspirin AdvReac Intermediate Other (See Unverified 09/21/23 05:13 Comment) oxycodone AdvReac Intermediate Nausea Unverified 09/21/23 05:13 General DARCY: 3 Review of Systems Narrative: Per HPI Exam Narrative Exam Narrative: Const: WDWN elderly male in NAD. VS per triage. HEENT: NC/AT. Normal facial exam. Neck: Supple. Trachea midline. Lungs: Normal respiratory effort. Back: No midline tenderness. Tender in the right lower lumbar region. No sciatic notch tenderness on the right. Neuro: A+O x 3. Normal speech, mentation. Cranial nerves II - XII grossly intact. No gross motor or sensory deficit. Specifically has normal sensation and normal strength in bilateral lower extremities. Ext: No C/C/E. No calf tenderness. Medical Decision Making Patient presenting to ED with right lower back pain radiating down his right leg to the ankle. Does seem consistent with sciatica. He has no red flags with no midline tenderness, bladder or bowel problems, numbness or weakness. He has not taken anything [id number]. I would agree on avoiding nonsteroidals given his history of CKD and elevated creatinines in the past. Will start with Tylenol, lidocaine patch and obtain LS-spine x-ray. LS-spine films per my review with degenerative change, mild retrolisthesis L2/L3 likely degenerative. No suspicious osseous lesions. Patient reports improvement with Tylenol and lidocaine patch. Given the likelihood of nerve inflammation and swelling and not wanting to use nonsteroidals will place on Medrol Dosepak. Patient to call primary care for follow-up. Return precautions provided. Medical Records Medical records reviewed: Yes I reviewed the patient's medical records. Imaging Data Radiologic Study: Attestation: I personally reviewed and interpreted this imaging study as follows: Imaging: X-Ray My impression: See [facility] All Active Problems (Updated 09/21/23 @ 06:47 by Adelso Joe MD) Right sided sciatica (Acute) Soft tissue mass (Acute) Panic attack (Acute) Syncope (Chronic) Snoring (Acute) Adenomyomatosis of gallbladder (Acute) Nicotine addiction (Acute) Renal insufficiency (Chronic) Sebaceous cyst (Acute) Medical History HTN (hypertension) COPD (chronic obstructive pulmonary disease) Hypothyroidism Anxiety Osteoarthritis of right shoulder Surgical History H/O surgical procedure A. VASECTOMY B. DENTAL EXTRACTIONS C. RIGHT SHOULDER HEMIARTHROPLASTY WITH HUMERAL CAP PROSTHESIS 12/13/2013 Status post right shoulder hemiarthroplasty Social History Smoking/Tobacco Use Status: Current every day Tobacco Type: cigarettes Smoking risk assessment performed?: Yes Alcohol Intake: never Drug use: Never Substance use type: does not use Housing: house Current gender identity: male Do you feel safe at home: Yes Do you feel safe in your relationship?: Yes
--- NOTE | 2023-09-21 05:15 | DI.RAD_ITS ---
Exam(s) XR LUMBAR SPINE AP, LAT EXAM: XR LUMBAR SPINE AP, LAT CLINICAL HISTORY: back pain. TECHNIQUE: 2D digital imaging was performed of the lumbar spine. Three images were obtained. AP, l ateral and L5-S1 spot views were obtained. COMPARISON: CT CT ABDOMEN PELVIS W from 01/24/2023 FINDINGS: BONES: No fracture or destructive lesion. There are endplate osteophytes at all levels of the lumbar spine. Degenerative changes of the facets are seen at L5-S1. DISKS: There is disc space narrowing at L2-L3, L3-L4 and L4-L5. Vacuum discs are seen from L1-L2 thr ough L4-L5. ALIGNMENT: There is a mild right convex curvature of the lumbar spine. No spondylolysis or spondylol isthesis. SOFT TISSUE: Vascular calcifications are present. There is a moderate amount of stool in the colon w hich may reflect constipation. IMPRESSION: 1. Moderately severe degenerative changes are present throughout the lumbar spine. Right convex lumb ar scoliosis. 2. Moderate amount of stool in the colon suggesting constipation. DATA REPOSITORY: RADIATION DOSE DELIVERED:
[2023-09-21 05:20] VITALS: BP 117/74; PULSE 79; TEMP 36.5; O2SAT 98
[2023-09-21] MEDS: Acetaminophen 500 MG TAB 1000 MG PO (05:31)
[2023-09-21] MEDS: Lidocaine 5% Patch 1 PATCH TP (05:31)
--- NOTE | 2023-09-21 07:34 | DI.VRAD_ITS ---
PROCEDURE INFORMATION: Exam: XR Lumbosacral Spine Exam date and time: 09/21/2023 5:46 AM Age: 73 years old Clinical indication: Sciatica; Right; Patient HX: Back pain TECHNIQUE: Imaging protocol: Radiologic exam of the lumbosacral spine. Views: 2 or 3 views. COMPARISON: No relevant prior studies are available for comparison. FINDINGS: Bones/joints: Vertebral body heights preserved. Multilevel degenerative changes. Mild convex right curvature. Soft tissues: Unremarkable. Intraperitoneal space: Calcifications in the pelvis. Gastrointestinal tract: Gas-filled bowel in the visualized abdomen. IMPRESSION: 1. No acute fracture seen. 2. Findings as above. Dictated and Authenticated by: Maria G Moore MD. Ordering:MINE Darden MD
== END 2023-09-21 07:00 | disposition home or self-care (01) ==
LOC: ER 06:48
PROVIDERS: Emergency Provider Emergency Medicine; PCP Family Medicine
DX: M54.41 Lumbago with sciatica, right side (principal); I10 Essential (primary) hypertension; J44.9 Chronic obstructive pulmonary disease, unspecified; E03.9 Hypothyroidism, unspecified; F17.210 Nicotine dependence, cigarettes, uncomplicated
CPT/HCPCS: 99283; 72100

== ENCOUNTER 2023-11-10 02:43 | Outpatient (CLI) | payer MEDICARE, BC, SELFPAY ==
[2023-11-10 09:50] LABS: ALT 18 U/L (16-63); AST 14 U/L (15-37); Albumin 3.5 g/dL (3.4-5.0); Alkaline Phosphatase 94 U/L (46-116); Anion Gap 9.1 mmol/L (3-11); BUN 32 mg/dL (7-18); Bilirubin, Total 0.64 mg/dL (0.2-1.0); CO2 25.9 mmol/L (21.0-32.0); CREATININE 2.1 mg/dL (0.70-1.30); Calcium 9.1 mg/dL (8.5-10.1); Calculated LDL 72 mg/dL (<100); Chloride 106 mmol/L (98-107); Cholesterol 133 mg/dL (<200); Estimated GFR 32.22 (mL/min/1.73m2); Glucose 89 mg/dL (74-106); HDL Cholesterol 41 mg/dL (40-60); Potassium 4.6 mmol/L (3.5-5.1); Sodium 141 mmol/L (136-145); Total Protein 8.4 g/dL (6.4-8.2); Triglyceride 100 mg/dL (<150); Vitamin D 25 Total 35.7 ng/mL (30-100)
[2023-11-10 19:46] LABS: PSA, Screening 2.3 ng/mL (<=6.5)
== END 2023-11-10 02:44 | disposition home or self-care (01) ==
LOC: LBO 02:43
PROVIDERS: PCP Family Medicine; Visit Provider Family Medicine
DX: Z00.00 Encounter for general adult medical examination without abnormal findings (principal); Z12.5 Encounter for screening for malignant neoplasm of prostate
CPT/HCPCS: 36415; 80053; 80061; 82306; 84153

== ENCOUNTER 2024-05-30 12:28 | Outpatient (REF) | payer MEDICARE, BC, SELFPAY ==
[2024-05-30 16:34] LABS: ALT 16 U/L (16-63); AST 16 U/L (15-37); Albumin 3.7 g/dL (3.4-5.0); Alkaline Phosphatase 106 U/L (46-116); Anion Gap 6.7 mmol/L (3-11); BUN 36 mg/dL (7-18); Bilirubin, Total 0.54 mg/dL (0.2-1.0); CO2 27.3 mmol/L (21.0-32.0); CREATININE 2.3 mg/dL (0.70-1.30); Calculated LDL 74 mg/dL (<100); Chloride 108 mmol/L (98-107); Cholesterol 136 mg/dL (<200); Estimated GFR 28.71 (mL/min/1.73m2); Glucose 89 mg/dL (74-106); HDL Cholesterol 43 mg/dL (>or=40); Potassium 5.5 mmol/L (3.5-5.1); Sodium 142 mmol/L (136-145); TSH 0.33 uIU/mL (0.36-3.74); Triglyceride 98 mg/dL (<150)
[2024-05-30 18:46] LABS: T4 9.8 ug/dL (4.7-13.3)
== END 2024-05-30 12:29 | disposition home or self-care (01) ==
LOC: NCHCN 12:28
PROVIDERS: PCP Family Medicine; Visit Provider Family Medicine
DX: I10 Essential (primary) hypertension (principal); E03.9 Hypothyroidism, unspecified
CPT/HCPCS: 80053; 80061; 84436; 84443

== ENCOUNTER 2024-12-21 17:07 | Outpatient (REF) | payer MEDICARE, BC, SELFPAY ==
[2024-12-21 14:58] LABS: ALT 12 U/L (16-63); AST 16 U/L (15-37); Albumin 3.5 g/dL (3.4-5.0); Alkaline Phosphatase 91 U/L (46-116); Anion Gap 7.4 mmol/L (3-11); BUN 40 mg/dL (7-18); Bilirubin, Total 0.3 mg/dL (0.2-1.0); CO2 24.6 mmol/L (21.0-32.0); Calcium 9.2 mg/dL (8.5-10.1); Calculated LDL 83 mg/dL (<100); Chloride 109 mmol/L (98-107); Cholesterol 133 mg/dL (<200); Estimated GFR 24.78 (mL/min/1.73m2); Glucose 94 mg/dL (74-106); HDL Cholesterol 37 mg/dL (>or=40); Potassium 5.9 mmol/L (3.5-5.1); Sodium 141 mmol/L (136-145); TSH 0.28 uIU/mL (0.36-3.74); Total Protein 7.6 g/dL (6.4-8.2); Triglyceride 69 mg/dL (<150)
== END 2024-12-21 17:08 | disposition home or self-care (01) ==
LOC: NCHCN 17:07
PROVIDERS: PCP Family Medicine; Visit Provider Family Medicine
DX: I10 Essential (primary) hypertension (principal)
CPT/HCPCS: 80053; 80061; 84439; 84443

== ENCOUNTER 2025-01-04 01:06 | Outpatient (CLI) | payer MEDICARE, BC, SELFPAY ==
--- NOTE | 2025-01-04 | DI.CT_ITS ---
Exam(s) CT ABDOMEN PELVIS WO EXAM: CT ABDOMEN PELVIS WO CLINICAL HISTORY: STAGE 4 CHRONIC KIDNEY DISEASE. TECHNIQUE: Imaging Protocol: Axial computed tomography images with coronal and sagittal reformatted images were created and reviewed CONTRAST MATERIAL: Intravenous: none Oral: None COMPARISON: CT CT ABDOMEN PELVIS W from 01/24/2023 FINDINGS: VISUALIZED LUNG BASES: No nodules nor pleural effusions evident. ABDOMEN: There is no ascites. LIVER: Benign cysts in the left hepatic lobe are again noted, unchanged. Small benign cyst in the right hepatic lobe also again noted. There are no new focal hepatic lesions evident on this non few study. GALLBLADDER/BILIARY: No obvious acute gallbladder pathology. CBD is not dilated. PANCREAS: No evidence of pancreatic mass nor dilatation of the pancreatic duct. SPLEEN: Spleen is not enlarged. No obvious intrasplenic lesions. ADRENALS: There are no new significant adrenal masses. KIDNEYS:Benign cyst in the anterior cortex of the left kidney measuring 1.8 cm is again noted, unchanged, not requiring further imaging workup. No solid lesions seen in the left kidney. There are few small cysts in the right kidney. However, in the mid pole lateral aspect of the right kidney there is a 0.2 x 1.1 cm finding which may not be a simple cyst 1.2 x 1.1 cm finding more evident than previous. May not be a simple cyst (series 3/image 41). Recommend ultrasound. There are no radiopaque calculi in the kidneys. No hydronephrosis nor hydroureter. ABDOMINAL AORTA: There is mild fusiform dilatation of the abdominal aorta with maximum diameter 2.9 cm. Diameter of the common iliac arteries also slightly prominent but without distinct focal aneurysm. LYMPH NODES: There is no retroperitoneal nor paraaortic adenopathy. ABDOMINAL WALL: No evidence of significant anterior abdominal wall nor inguinal hernia. GI: There is no evidence of bowel obstruction, free air, nor abscess. PELVIS: LYMPH NODES: There is no intrapelvic nor inguinal adenopathy. GI: No evidence of appendicitis.No evidence of sigmoid diverticulitis. URINARY BLADDER: No calculi nor obvious masses evident REPRODUCTIVE: Grossly enlarged prostate gland which indents the bladder base. OSSEOUS: No significant osseous lesions. Multilevel chronic degenerative disc disease. No listhesis. Moderate facet arthropathy IMPRESSION: 1. No renal calculi nor hydronephrosis. No hydroureter. 2. In addition to to a few benign cysts in the kidneys there is a 1.2 x 1.1 cm nodule which may not be a simple cyst in the lateral cortex of the right kidney. Difficult to assess accurately on this non few study. Recommend follow-up ultrasound exam to ensure that this is a cyst as opposed to a solid nodule in the lateral cortex of the right kidney. 3. Other findings as above. RADIATION DOSE DELIVERED: 525.67mGy.cm Total DLP DATA REPOSITORY: All CT scans at this facility are submitted to the National Radiology Data Registry (NRDR) Dose Index Registry (DIR) with the [employer] (ACR). RADIATION OPTIMIZATION: All CT scans at this facility use at least one of these dose optimization techniques: automated exposure control; mA and/or kV adjustment per patient size (includes targeted exams where dose is matched to clinical indication); or iterative reconstruction.
== END 2025-01-04 01:26 ==
PROVIDERS: PCP Family Medicine; Visit Provider Family Medicine
DX: N18.4 Chronic kidney disease, stage 4 (severe) (principal); N28.1 Cyst of kidney, acquired
CPT/HCPCS: 74176

== ENCOUNTER 2025-01-11 00:17 | Outpatient (CLI) | payer MEDICARE, BC, SELFPAY ==
--- NOTE | 2025-01-11 | DI.US_ITS ---
Exam(s) US RENAL EXAM: US RENAL CLINICAL HISTORY: RT RENAL CYST N28.1. TECHNIQUE: Burroughs scale imaging and color doppler were used. COMPARISON: CT CT ABDOMEN PELVIS W from 01/24/[address] ABDOMEN PELVIS WO from 01/04/2025 FINDINGS: Right kidney: 9.6cm Echogenicity: Normal Hydronephrosis: No Cyst or mass: 1.6 centimeter cyst upper pole. 1.1 x 1.6 centimeter cyst lower pole. No suspicious mass. Nephrolithiasis: No Left kidney: 8.6cm Echogenicity: Normal Hydronephrosis: No Cyst or mass: 1.8 centimeter cyst upper pole. No suspicious mass. Nephrolithiasis: No Bladder:Normal. Ureteral jets were visualized. Prevoid vol:255 cc Postvoid vol:8 cc IMPRESSION: Bilateral simple appearing renal cysts. No suspicious masses are identified. DATA REPOSITORY:
== END 2025-01-11 00:37 ==
LOC: DI 00:17
PROVIDERS: PCP Family Medicine; Visit Provider Family Medicine
DX: N28.1 Cyst of kidney, acquired (principal)
CPT/HCPCS: 76770

== ENCOUNTER → 2025-03-02 08:21 | Outpatient (BNVA) | payer MEDICARE, BC, SELFPAY | PROVIDERS: PCP Family Medicine; Referring Provider Physician Assistant; Visit Provider Surgery | DX: D48.5 Neoplasm of uncertain behavior of skin (principal) | CPT/HCPCS: 99214 ==

== ENCOUNTER → 2025-03-09 13:31 | Outpatient (BNVA) | payer MEDICARE, BC, SELFPAY | PROVIDERS: PCP Family Medicine; Referring Provider Physician Assistant; Visit Provider Surgery | DX: M79.89 Other specified soft tissue disorders (principal) | CPT/HCPCS: 11406 ==

== ENCOUNTER 2025-03-09 13:57 | Outpatient (REF) | payer MEDICARE, BC, SELFPAY ==
--- NOTE | 2025-03-09 14:10 | SKI_PTH ---
PATIENT: Tevin Soto LOC: [facility] U#:[id number] AGE/SX: 74/M ROOM: RE03/09/[address]: Jah Dickey MD : [id number] BED: DIS: 03/09/2025 SPEC #: [id number] RECD: 03/09/25 17:59 STATUS: NANCY REQ #: [id number] BALJINDER: 03/09/25 14:[address]: Jah Dickey DEPT: Surgical Specimen RECD BY: Lilliam Benitez ENTERED: 03/09/25 18:00 SP TYPE: ASH CORNE[facility] DR: Yesy Galvan Tissues: 1 - SKIN BIOPSY(SHAVE/PUNCH) Procedures: SKIN LEVEL 4 Comments: [id number]
== END 2025-03-09 13:58 | disposition home or self-care (01) ==
LOC: LBN 13:57
PROVIDERS: PCP Family Medicine; Visit Provider Surgery
DX: L57.0 Actinic keratosis (principal)
CPT/HCPCS: 88305

== ENCOUNTER 2025-03-14 18:08 | Outpatient (CLI) | payer MEDICARE, BC, SELFPAY ==
--- NOTE | 2025-03-14 18:00 | RT.EKG_ITS ---
APPROVED REPORT Exam: Resting ECG Reason for Exam: tachycardia Patient Location: O HR:61 bpm ECG Measurements Heart Rate 61 AXIS [place] 156 P 79 QRSd 92 QRS 75 QT 372 T 82 QTc 375 Conclusion Sinus rhythm...normal P axis, V-rate 50- 99 Probable left atrial enlargement...P >50mS, <-0.10mV V1 Otherwise normal ECG
== END 2025-03-14 18:09 | disposition home or self-care (01) ==
LOC: DI.CM 18:09
PROVIDERS: PCP Family Medicine; Visit Provider Nurse Practitioner Family
DX: R07.89 Other chest pain (principal); R00.0 Tachycardia, unspecified; I51.7 Cardiomegaly
CPT/HCPCS: 93010

== ENCOUNTER 2025-03-14 18:39 | Outpatient (REF) | payer MEDICARE, BC, SELFPAY ==
[2025-03-14 21:00] LABS: HCT 46.5 % (40.0-50.0); HGB 15.0 g/dL (13.5-17.5); MCH 30.8 pg (27.0-33.0); MCHC 32.3 % (32.0-36.0); MCV 96 fL (80-95); MPV 10.2 fL (8.0-11.0); Platelet Count 160 10^3/uL (130-400); RBC 4.87 10^6/uL (4.36-5.78); RDW 13.5 % (11.8-14.1); RDW-SD 47.5 fL; WBC 6.03 10^3/uL (4.4-10.8)
[2025-03-14 21:15] LABS: Magnesium 2.2 mg/dL (1.6-2.6)
[2025-03-14 21:16] LABS: ALT 13 U/L (10-49); AST 21 U/L (<34); Albumin 3.8 g/dL (3.2-5.0); Alkaline Phosphatase 90 U/L (46-116); Anion Gap 4.7 mmol/L (3-11); BUN 42 mg/dL (9-23); Bilirubin, Total 0.2 mg/dL (0.2-1.2); CO2 26.3 mmol/L (20.0-31.0); Calcium 9.0 mg/dL (8.3-10.6); Chloride 114 mmol/L (98-107); Glucose 78 mg/dL (74-106); Potassium 5.8 mmol/L (3.5-5.1); Sodium 145 mmol/L (136-145); Total Protein 7.7 g/dL (5.7-8.2)
== END 2025-03-14 18:40 | disposition home or self-care (01) ==
LOC: LBN 18:39
PROVIDERS: PCP Family Medicine; Visit Provider Nurse Practitioner Family
DX: R00.0 Tachycardia, unspecified (principal)
CPT/HCPCS: 80053; 85027; 83735

== ENCOUNTER 2025-03-16 11:30 | Outpatient (RCR) | payer MEDICARE, BC, SELFPAY | END 2025-03-29 23:59 | disposition home or self-care (01) | LOC: CARDOPNVT 11:30 | PROVIDERS: PCP Family Medicine; Visit Provider Internal Medicine Cardiovascular Disease | DX: R00.0 Tachycardia, unspecified (principal); I48.0 Paroxysmal atrial fibrillation | CPT/HCPCS: 93227; 93225; 93226 ==

== ENCOUNTER → 2025-03-20 11:25 | Outpatient (BNVA) | payer MEDICARE, BC, SELFPAY | PROVIDERS: PCP Family Medicine; Referring Provider Physician Assistant; Visit Provider Surgery | DX: L57.0 Actinic keratosis (principal) | CPT/HCPCS: 99213 ==